=== PATIENT | female | born 1980 | race Caucasian/White ===

== ENCOUNTER 2016-10-11 15:48 | Emergency (ER) | payer BC, OTHER ==
[~2016-10-11] VITALS: Ht 160 cm; Wt 94.0 kg
[2016-10-11 15:53] VITALS: TEMP 37.3; Ht 160 cm; Wt 94.0 kg
--- NOTE | 2016-10-11 16:16 | EMERGENCY ROOM VISIT NOTE ---
History First contact with patient: 16:04 Chief Complaint: HAND PAIN/INJURY Stated Complaint: SWOLLEN, EXTREME PAIN IN LEFT HAND- History of Present Illness The patient is a 35 year old female who presents to the Emergency Room with complaints of fall at work. The patient states that she accidentally stepped into a drain in the floor at work. She states she struck her left hand on the rim of the drain. She states she also twisted her right knee and right ankle. She is able to walk without significant difficulty. She complains of pain in the left hand over the first metacarpal. She reports pain with movement of the left thumb. She rates her discomfort a 9/10. She denies striking her head or having loss of consciousness. She denies any nausea or vomiting. She denies any numbness or tingling. She denies any other injury. Review of Systems A 10 system review of systems was completed with positives and pertinent negatives listed in the HPI. Past Medical/Surgical History Medical Problems: (1) IBS (irritable bowel syndrome) Family History Cancer Diabetes mellitus FHx: gallbladder disease Hypertension Social History Smoking Status: Current Every Day Smoker Alcohol Use: occasionally Marital Status: in relationship Housing Status: lives with significant other Occupation Status: employed Current/Historical Medications Scheduled PRN Baclofen (Baclofen), 10 MG PO DAILY PRN for Muscle Spasms Allergies Coded Allergies: Penicillins (Verified Allergy, Unknown, ., 10/11/16) Tramadol (Unverified Allergy, Unknown, DIZZINESS/LIGHT HEADED, 10/11/16) Physical Exam Vital Signs Date Time Temp Pulse Resp B/P Pulse Ox O2 Delivery O2 Flow Rate FiO2 10/11/16 17:41 83 18 121/93 97 Room Air 10/11/16 15:53 37.3 84 16 159/96 100 Room Air Physical Exam VITALS: Vitals are noted on the nurse's note and reviewed by myself. Vital signs stable. GENERAL: This is a 35-year-old female, in no acute distress, nondiaphoretic, well-developed well-nourished. SKIN: There is ecchymosis and edema over the thenar eminence of the left hand. There is superficial abrasion noted to the left anterior lower extremity. There is no tenting of the skin. Capillary reflex less than 2 seconds. HEAD: Normocephalic atraumatic. EARS: External ears are normal in appearance. EYES: Pupils equal round and reactive to light and accommodation. Conjunctivae without injection, sclerae without icterus. Extraocular movements intact. NOSE: Patent, turbinates without inflammation or discharge. MOUTH: Mucous membranes moist. Tonsils are not enlarged. Pharynx without erythema or exudate. Uvula midline. Airway patent. Tongue does not deviate. NECK: Supple without nuchal rigidity. No JVD. HEART: Regular rate and rhythm without murmurs gallops or rubs. LUNGS: Clear to auscultation bilaterally without wheezes, rales or rhonchi. No retractions or accessory muscle use. MUSCULOSKELETAL: No muscle atrophy, erythema,noted. There is ecchymosis, edema and tenderness over the left thenar eminence. There is no significant or obvious ligamentous instability of the left thumb. There is no significant snuffbox tenderness. Reports since there is mild tenderness to palpation to the right lateral malleolus. There is no erythema, ecchymosis, edema or deformity. There is mild tenderness to palpation of the right knee without deformity, ecchymosis, edema or erythema. Remaining extremities are unremarkable. NEURNormal sensation to light and sharp touch. Deep tendon reflexes 2+ throughout. No focal neurological deficits. Medical Decision & Procedures ER Provider Diagnostic Interpretation: [~ rep ct add3]] RIGHT ANKLE 3 VIEWS CLINICAL HISTORY: Fall with right ankle pain. FINDINGS: 3 views of the right ankle are compared to study dated 12/29/2005. The skeletal structures are well mineralized. No fracture is seen. The ankle mortise is intact. There is no joint effusion. Minimal degenerative spurring is seen along the dorsal aspect of the tarsal bones. There is a large dorsal calcaneal enthesophyte. Mild soft tissue swelling is present in the distal calf. IMPRESSION: Mild soft tissue swelling with no radiographic evidence of right ankle fracture. LEFT HAND 3 VIEWS CLINICAL HISTORY: Fall with left hand pain. FINDINGS: 3 views of left hand are obtained. No prior studies are available for comparison at the time of dictation. The skeletal structures are well mineralized. No fracture is seen. The joint spaces of the hand are well-maintained. The overlying soft tissues are within normal limits. IMPRESSION: Unremarkable radiographic assessment of the left hand. RIGHT KNEE 3 VIEWS CLINICAL HISTORY: Fall with right knee pain. FINDINGS: AP, crosstable lateral, and sunrise views of the right knee are obtained. No prior studies are available for comparison at the time of dictation. The skeletal structures are well mineralized. No fracture is seen. The joint spaces of the knee are well-maintained. The overlying soft tissues are within normal limits. IMPRESSION: No acute bony abnormality is seen in the right knee. LEFT WRIST 5 VIEWS CLINICAL HISTORY: Fall with left wrist pain. FINDINGS: 5 views of left wrist are obtained. No prior studies are available for comparison at the time of dictation. The skeletal structures are well mineralized. No fracture is seen. The joint spaces of the wrist are well-maintained. The overlying soft tissues are within normal limits. IMPRESSION: Unremarkable radiographic assessment of the left wrist. Medications Administered Medications (Trade) Dose Ordered Sig/Maynor Route Start Time Stop Time Status Last Admin Dose Admin Acetaminophen/ Hydrocodone Bitart (Lisle 5/325mg Home Pack) 1 homepack UD ONCE PO 10/11/16 17:45 4 17:45 DC 10/11/16 17:40 1 HOMEPACK ED Course The patient was seen and examined. Previous visits were reviewed. The patient tripped and fell at work. She has pain, tenderness and ecchymosis to the left hand. This likely represents a hand contusion. There is no evidence for fracture on x-ray. Ligamentous injury is also considered. 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 Neurovascular status was intact. There is no evidence for fracture in the right knee or right ankle. The patient was encouraged to try conservative management. She was given a note for work. She did request additional pain medication. I advised her that the mainstay of treatment is ice , rest, elevation and anti-inflammatories. I did give her a take-home pack of Lisle but advised her that conservative management is more appropriate after the initial 24-48 hours. She should return to the ER with any worsening symptoms. Otherwise, she should follow-up with orthopedics if symptoms are not improving in 5-7 days. Medical Decision The differential diagnosis includes contusion, sprain, strain, ligamentous injury, fracture, among others Impression Primary Impression: Hand contusion Additional Impressions: Fall Work related injury Leg sprain Departure Information Dispostion Home / Self-Care Condition GOOD Referrals Kailash Garcia, D.O. (PCP) Rocael Braden D.O. Forms HOME CARE DOCUMENTATION FORM, IMPORTANT VISIT INFORMATION, Work Instructions Additional Instructions: Must wear splint with limited use of the left hand for the next 7 days Patient Instructions [facility] Additional Instructions Motrin 600 mg every 6-8 hours or moderate pain Wear the splint over the next 5-7 days Follow-up with an employer proved Worker's Compensation doctor if symptoms are not improving Return with any worsening symptoms Lisle 1 tablet every 6 hours if needed for worse pain. Do not drink or drive while taking Lisle and do not take with Tylenol. Problem Qualifiers Primary Impression: Hand contusion Encounter type: initial encounter Laterality: left Qualified Codes: S60.222A - Contusion of left hand, initial encounter Additional Impressions: Fall Encounter type: initial encounter Qualified Codes: W19.XXXA - Unspecified fall, initial encounter
[2016-10-11] MEDS ORDERED: LRS10 PO (16:45)
--- NOTE | 2016-10-11 16:49 | DIAGNOSTIC IMAGING REPORT ---
RIGHT KNEE 3 VIEWS CLINICAL HISTORY: Fall with right knee pain. FINDINGS: AP, crosstable lateral, and sunrise views of the right knee are obtained. No prior studies are available for comparison at the time of dictation. The skeletal structures are well mineralized. No fracture is seen. The joint spaces of the knee are well-maintained. The overlying soft tissues are within normal limits. IMPRESSION: No acute bony abnormality is seen in the right knee. Electronically signed by: Sanjay Epps M.D. 10/11/2016 4:46 PM Dictated Date/Time: 10/11/2016 4:45 PM
--- NOTE | 2016-10-11 16:50 | DIAGNOSTIC IMAGING REPORT ---
RIGHT ANKLE 3 VIEWS CLINICAL HISTORY: Fall with right ankle pain. FINDINGS: 3 views of the right ankle are compared to study dated 12/29/2005. The skeletal structures are well mineralized. No fracture is seen. The ankle mortise is intact. There is no joint effusion. Minimal degenerative spurring is seen along the dorsal aspect of the tarsal bones. There is a large dorsal calcaneal enthesophyte. Mild soft tissue swelling is present in the distal calf. IMPRESSION: Mild soft tissue swelling with no radiographic evidence of right ankle fracture. Electronically signed by: Sanjay Epps M.D. 10/11/2016 4:48 PM Dictated Date/Time: 10/11/2016 4:47 PM
--- NOTE | 2016-10-11 17:06 | DIAGNOSTIC IMAGING REPORT ---
LEFT WRIST 5 VIEWS CLINICAL HISTORY: Fall with left wrist pain. FINDINGS: 5 views of left wrist are obtained. No prior studies are available for comparison at the time of dictation. The skeletal structures are well mineralized. No fracture is seen. The joint spaces of the wrist are well-maintained. The overlying soft tissues are within normal limits. IMPRESSION: Unremarkable radiographic assessment of the left wrist. Electronically signed by: Sanjay Epps M.D. 10/11/2016 5:04 PM Dictated Date/Time: 10/11/2016 5:02 PM
--- NOTE | 2016-10-11 17:07 | DIAGNOSTIC IMAGING REPORT ---
LEFT HAND 3 VIEWS CLINICAL HISTORY: Fall with left hand pain. FINDINGS: 3 views of left hand are obtained. No prior studies are available for comparison at the time of dictation. The skeletal structures are well mineralized. No fracture is seen. The joint spaces of the hand are well-maintained. The overlying soft tissues are within normal limits. IMPRESSION: Unremarkable radiographic assessment of the left hand. Electronically signed by: Sanjay Epps M.D. 10/11/2016 5:05 PM Dictated Date/Time: 10/11/2016 5:04 PM
[2016-10-11 17:41] VITALS: BP 121/93; PULSE 83; O2SAT 97
[2016-10-11] MEDS ORDERED: NORCO 5/325MG HOME PACK PO ONE (17:45)
== END 2016-10-11 17:43 | disposition home or self-care (01) ==
LOC: C.EDB 15:49 → C.EDD 17:43
DX: S60.222A Contusion of left hand, initial encounter (principal); S93.401A Sprain of unspecified ligament of right ankle, initial encounter; W19.XXXA Unspecified fall, initial encounter; Y92.89 Other specified places as the place of occurrence of the external cause; Y99.0 Civilian activity done for income or pay; K58.9 Irritable bowel syndrome, unspecified; Z80.9 Family history of malignant neoplasm, unspecified; Z83.3 Family history of diabetes mellitus; Z83.79 Family history of other diseases of the digestive system; Z82.49 Family history of ischemic heart disease and other diseases of the circulatory system; F17.210 Nicotine dependence, cigarettes, uncomplicated

== ENCOUNTER → 2017-03-03 | Outpatient (CLI) | payer BC ==
[~2017-03-03] MED LIST: LRS10 PO
--- NOTE | 2017-03-03 15:05 | DIAGNOSTIC IMAGING REPORT ---
LEFT WRIST MIN 3 VIEWS ROUTINE CLINICAL HISTORY: Fracture. Distal left ulnar pain following fall. COMPARISON: Left hand and wrist radiographs October 11, 2016. FINDINGS: Carpal bones are intact. There is no acute fracture within the left wrist. IMPRESSION: No acute fracture or dislocation of the left wrist. Electronically signed by: Rodriguez Casanova M.D. 03/03/2017 3:04 PM Dictated Date/Time: 03/03/2017 3:03 PM
== END | disposition home or self-care (01) ==
LOC: C.RDSM 14:43
PROVIDERS: ATTEND Physician Assistant
DX: T14.8 Other injury of unspecified body region (principal); W19.XXXA Unspecified fall, initial encounter

== ENCOUNTER → 2017-03-24 | Outpatient (CLI) | payer BC ==
--- NOTE | 2017-03-24 15:37 | DIAGNOSTIC IMAGING REPORT ---
L WRIST MIN 3 VIEWS ROUTINE CLINICAL HISTORY: 36 years-old Female presenting with F/U LEFT WRIST FX. TECHNIQUE: Frontal, oblique, and lateral views of the left wrist were obtained. COMPARISON: 03/03/2017. FINDINGS: Radiocarpal, intercarpal, and carpometacarpal articulations intact. No acute fracture or malalignment. No radiographic soft tissue abnormality. IMPRESSION: No acute osseous injury of the left wrist. Electronically signed by: Junior No M.D. 03/24/2017 3:36 PM Dictated Date/Time: 03/24/2017 3:35 PM
== END | disposition home or self-care (01) ==
LOC: C.RDSM 15:45
PROVIDERS: ATTEND Physician Assistant
DX: Z09 Encounter for follow-up examination after completed treatment for conditions other than malignant neoplasm (principal); S62.102D Fracture of unspecified carpal bone, left wrist, subsequent encounter for fracture with routine healing; X58.XXXD Exposure to other specified factors, subsequent encounter; M25.532 Pain in left wrist

== ENCOUNTER 2022-02-06 11:01 | Inpatient (IN) ==
[2022-02-06] MEDS ORDERED: oxyCODONE HCL IR 5 MG TAB (IMMEDIATE RELEASE) PO STA (11:27)
--- NOTE | 2022-02-06 11:32 | Emergency Department Note ---
History of Present Illness General Chief complaint: Wrist Pain Stated complaint: PAIN IN LEFT WRIST Time Seen by Provider: 02/06/22 11:19 History of Present Illness This is a 41-year-old female that presents to the emergency department via private vehicle with complaints of "pain in left wrist". The patient states that 1.5 days ago she began with discomfort to the left distal forearm/left ventral wrist region. She denies any known trauma or injury to the area. She notes significant discomfort when she attempts to move digits 3, 4, and 5 either with flexion or extension. She does note that this has progressed since that time. She states that the pain radiates from the left wrist all the way to the left shoulder. She denies any fevers or chills but does note some redness to the ventral left wrist area. Current pain is rated as severe. Home Medications Medication Instructions Recorded Confirmed Type acetaminophen 500 mg tablet 500 mg PO TID PRN Pain 06/04/19 02/06/22 History (Tylenol Extra Strength) Allergies Allergy/AdvReac Type Severity Reaction Status Date / Time Penicillins Allergy Unknown . Verified 06/04/19 12:10 tramadol Allergy Unknown DIZZINESS/LIGHT Unverified 06/04/19 12:10 HEADED Past Med/Surg History Medical History Arthritis Arthritis of back Fibromyalgia IBS (irritable bowel syndrome) Surgical History H/O knee surgery Family History Other Breast cancer Diabetes Hypertension Social History Smoking Status: Current every day smoker packs per day: 1; Hx Alcohol Use: No Hx Substance Use: Yes Prescribed Medications: Marijuana Preferred Language: Monegasque [employer] Manager Required: No Beliefs That Will Affect Care: None marital status: Current Living Situation: Significant Other current occupational status: employed current occupation: [employer] Other Information That Helps Us Care for You: No Feels Safe at Home: Yes Safety Concerns: Feels Safe At This Time Assistive Devices: Glasses Review of Systems A total of 10 systems reviewed and were otherwise negative Physical Exam Vital Signs Vital Signs - 24 hr 02/06/22 11:10 08/14/22 11:41 02/06/22 14:44 Temperature 36.8 C Temperature Source Temporal Artery Scan Pulse Rate 70 Pulse Rate [Left Radial] 95 H Pulse Rhythm [Left Radial] Regular Respiratory Rate 16 20 Respiratory Effort / Characteristics Non-Labored Spontaneous Respiratory Depth Normal Normal Respiratory Pattern Regular Blood Pressure 136/85 Blood Pressure Mean 102 Blood Pressure Position Sitting Pulse Oximetry 98 99 97 Oxygen Delivery Method Room Air Room Air Room Air Sepsis Recent Fever Within 48 Hours No Sepsis New/Unexplained Change in Mental Status No Sepsis Action Taken by Nursing No Action Required VITAL SIGNS - Vital signs and nursing notes were reviewed. Stable and afebrile. GENERAL -41-year-old female appearing her stated age who is in no acute distress. Communicates well with provider and answers questions appropriately. SKIN -there is erythema and edema noted overlying the ventral aspect of the left wrist. Patient is holding digits 3, 4 and 5 of the left hand in a flexed position. Decreased left wrist range of motion noted. NECK - Neck with FROM. No nuchal rigidity. LUNGS - Chest wall symmetric without accessory muscle use, intercostals retractions, or central cyanosis. Normal vesicular breath sounds CTA B/L. No wh eezes, rales, or rhonchi appreciated. CARDIAC - RRR with S1/S2. No murmur, rubs, or gallops appreciated. EXTREMITIES - No clubbing or peripheral cyanosis. Skin as above. There is point tenderness overlying the ventral aspect of the left wrist extending into the palmar aspect of the left proximal hand. No crepitus. There is palpable edema noted throughout the left ventral wrist region compared to the right. There is increased warmth to the left wrist compared to the right. +5/5 strength noted in UE/LE bilaterally. NEUROLOGIC - Cranial nerves II through XII grossly intact. PSYCH - A&O, and cooperates fully with examiner. Pt is very pleasant and interacts well with examiner. Course Administered Medications Discontinued Medications Fentanyl Citrate (Fentanyl Citrate 100 Mcg/2 Ml Vial) 50 mcg IV NOW STA Stop: 02/06/22 14:44 Last Admin: 02/06/22 15:02 Dose: 50 mcg Documented By: XIAO Vancomycin HCl 1,250 mg/ (Sodium Chloride) 525 mls @ 200 mls/hr IV NOW ONE Stop: 02/06/22 17:18 Last Admin: 02/06/22 15:56 Dose: 200 mls/hr Documented By: BENI Ioversol (Optiray 300 100ml) 89 ml IV ONCE ONE Stop: 02/06/22 13:53 Last Admin: 02/06/22 14:01 Dose: 89 ml Documented By: MIYA Ketorolac Tromethamine (Ketorolac Tromethamine 15 Mg/Ml Vial) 10 mg IV NOW STA Stop: 02/06/22 12:28 Last Admin: 02/06/22 12:31 Dose: 10 mg Documented By: XIAO Ondansetron HCl (Ondansetron Inj 2 Mg/Ml 2 Ml Vial) 4 mg IV NOW STA Stop: 02/06/22 14:44 Last Admin: 02/06/22 15:03 Dose: 4 mg Documented By: XIAO Oxycodone HCl (Oxycodone Hcl Ir 5 Mg Tab (Immediate Release)) 5 mg PO NOW STA Stop: 02/06/22 11:28 Last Admin: 02/06/22 11:35 Dose: 5 mg Documented By: XIAO Medical Decision Making Laboratory Data Result diagrams: 02/06/22 11:40 02/06/22 11:40 Lab Results 02/06/22 02/06/22 02/06/22 Range/Units 11:40 11:40 11:40 WBC 10.51 (4.8-10.8) K/ul RBC 4.32 (3.93-5.22) M/uL Hgb 13.2 (12.0-16.0) g/dl Hct 38.8 (34.1-44.9) % MCV 89.8 (80.0-100.0) fL MCH 30.6 (25.0-34.0) pg MCHC 34.0 (32.0-36.0) g/dL RDW Std Deviation 44.4 (36.4-46.3) fL RDW Coeff of Bruce 13.4 (11.5-14.5) % Plt Count 212 (130-400) K/uL MPV 10.5 (9.4-12.3) fL Immature Gran % (Auto) 0.3 % Neut % (Auto) 71.3 % Lymph % (Auto) 14.3 % Estill % (Auto) 10.0 % Eos % (Auto) 3.8 % Baso % (Auto) 0.3 % Neut # (Auto) 7.50 H (1.4-6.5) K/uL Lymph # (Auto) 1.50 (1.2-3.4) K/uL Estill # (Auto) 1.05 H (0.24-0.82) K/uL Eos # (Auto) 0.40 (0-0.50) K/uL Baso # (Auto) 0.03 (0-0.2) K/uL Immature Gran # (Auto) 0.03 H (0.00-0.02) K/uL ESR 13 (0-20) mm/hr Sodium 136 (136-145) mmol/L Potassium 4.1 (3.5-5.1) mmol/L Chloride 106 (98-107) mmol/L Carbon Dioxide 24 (21-32) mmol/L Anion Gap 6 (3-11) BUN 8 (6-23) mg/dl Creatinine 0.50 L (0.6-1.2) mg/dl Est Cr Clr Drug Dosing 134.2 ml/min Est GFR ( Amer) 139.3 ml/min Est GFR (Non-Af Amer) 120.2 ml/min BUN/Creatinine Ratio 16.0 (10-20) Glucose 99 (70-99(Fasting)) mg/dl Calcium 8.9 (8.5-10.1) mg/dl Total Bilirubin 0.6 (0.2-1.0) mg/dl AST 23 (13-39) U/L ALT 22 (7-52) U/L Alkaline Phosphatase 46 (34-104) U/L C-Reactive Protein 1.10 H (0-0.5) mg/dl Total Protein 7.0 (6.0-8.3) gm/dl Albumin 4.1 (3.4-5.0) gm/dl Globulin 2.9 (2.5-4.0) gm/dl Albumin/Globulin Ratio 1.4 (0.9-2) HCG, Qual (Negative) SARS-CoV-2, RNA, NAAT (NEGATIVE) 02/06/22 02/06/22 Range/Units 11:40 14:52 WBC (4.8-10.8) K/ul RBC (3.93-5.22) M/uL Hgb (12.0-16.0) g/dl Hct (34.1-44.9) % MCV (80.0-100.0) fL MCH (25.0-34.0) pg MCHC (32.0-36.0) g/dL RDW Std Deviation (36.4-46.3) fL RDW Coeff of Bruce (11.5-14.5) % Plt Count (130-400) K/uL MPV (9.4-12.3) fL Immature Gran % (Auto) % Neut % (Auto) % Lymph % (Auto) % [place] % (Auto) % Eos % (Auto) % Baso % (Auto) % Neut # (Auto) (1.4-6.5) K/uL Lymph # (Auto) (1.2-3.4) K/uL Estill # (Auto) (0.24-0.82) K/uL Eos # (Auto) (0-0.50) K/uL Baso # (Auto) (0-0.2) K/uL Immature Gran # (Auto) (0.00-0.02) K/uL ESR (0-20) mm/hr Sodium (136-145) mmol/L Potassium (3.5-5.1) mmol/L Chloride (98-107) mmol/L Carbon Dioxide (21-32) mmol/L Anion Gap (3-11) BUN (6-23) mg/dl Creatinine (0.6-1.2) mg/dl Est Cr Clr Drug Dosing ml/min Est GFR ( Amer) ml/min Est GFR (Non-Af Amer) ml/min BUN/Creatinine Ratio (10-20) Glucose (70-99(Fasting)) mg/dl Calcium (8.5-10.1) mg/dl Total Bilirubin (0.2-1.0) mg/dl AST (13-39) U/L ALT (7-52) U/L Alkaline Phosphatase (34-104) U/L C-Reactive Protein (0-0.5) mg/dl Total Protein (6.0-8.3) gm/dl Albumin (3.4-5.0) gm/dl Globulin (2.5-4.0) gm/dl Albumin/Globulin Ratio (0.9-2) HCG, Qual Negative (Negative) SARS-CoV-2, RNA, NAAT POSITIVE A* (NEGATIVE) Imaging Data Radiologist's Impression: Forearm X-Ray 02/06/22 11:27 XR forearm LT 2V, XR hand LT min 3V routine, XR wrist LT min 3V routine CLINICAL HISTORY: L hand, wrist, forearm pain. COMPARISON STUDY: No previous studies for comparison. TECHNIQUE: AP and lateral left forearm, 4 left wrist and 3 left hand views FINDINGS: Bones: There is no evidence for an acute fracture or dislocation. There is no lytic or blastic lesion. Joints: The joint spaces are maintained. The patient held her fingers in flexion. There is no evidence for an erosive arthropathy. The bones are in anatomic alignment. Soft tissues: There is no focal soft tissue abnormality. There is no radiopaque foreign body. IMPRESSION: 1. No acute osseous pathology. ACT 112: Negative or not required by law. Electronically signed by: Reyes Blunt M.D. 02/06/2022 12:01 PM Hand X-Ray 02/06/22 11:27 XR forearm LT 2V, XR hand LT min 3V routine, XR wrist LT min 3V routine CLINICAL HISTORY: L hand, wrist, forearm pain. COMPARISON STUDY: No previous studies for comparison. TECHNIQUE: AP and lateral left forearm, 4 left wrist and 3 left hand views FINDINGS: Bones: There is no evidence for an acute fracture or dislocation. There is no lytic or blastic lesion. Joints: The joint spaces are maintained. The patient held her fingers in flexi on. There is no evidence for an erosive arthropathy. The bones are in anatomic alignment. Soft tissues: There is no focal soft tissue abnormality. There is no radiopaque foreign body. IMPRESSION: 1. No acute osseous pathology. ACT 112: Negative or not required by law. Electronically signed by: Reyes Blunt M.D. 02/06/2022 12:01 PM Wrist X-Ray 02/06/22 11:27 XR forearm LT 2V, XR hand LT min 3V routine, XR wrist LT min 3V routine CLINICAL HISTORY: L hand, wrist, forearm pain. COMPARISON STUDY: No previous studies for comparison. TECHNIQUE: AP and lateral left forearm, 4 left wrist and 3 left hand views FINDINGS: Bones: There is no evidence for an acute fracture or dislocation. There is no lytic or blastic lesion. Joints: The joint spaces are maintained. The patient held her fingers in flexion. There is no evidence for an erosive arthropathy. The bones are in anatomic alignment. Soft tissues: There is no focal soft tissue abnormality. There is no radiopaque foreign body. IMPRESSION: 1. No acute osseous pathology. ACT 112: Negative or not required by law. Electronically signed by: Reyes Blunt M.D. 02/06/2022 12:01 PM Extremity Venous Study 02/06/22 11:28 US venous doppler UE LT CLINICAL HISTORY: L hand, wrist, forearm pain Procedure: Left upper extremity real-time compression venous ultrasound with Duplex and Color Doppler imaging. Utilizing real-time ultrasonic imaging multiple real time high-resolution ultrasonic images of the deep venous system were performed from the forearm through the subclavian vein including evaluation of the jugular vein. Compression real time ultrasonic imaging was performed in addition to color Doppler imaging and duplex Doppler ultrasound with velocity spectral profile analysis. There is normal compressibility of the deep venous system from the forearm through the subclavian vein. Normal vascular flow is currently identified. No e vidence of acute thrombosis is identified. Incidental note is made of a 2.4 cm left thyroid nodule. Follow-up thyroid ultrasound on nonemergent basis is recommended for further evaluation. Impression: 1. No evidence of deep venous thrombus. 2. Left thyroid nodule. ACT 112: Positive. There are findings on this exam that require communication between the performing entity and the patient following Patient Test Result Information Act [place] Act 112) guidelines. Electronically signed by: Reyes Blunt M.D. 02/06/2022 1:[address] 02/06/22 13:21 CT forearm LT w con CLINICAL HISTORY: L distal ventral forearm erythema, edema, pain COMPARISON STUDY: No previous studies for comparison. CT DOSE: 384.89 mGy.cm TECHNIQUE: Standard CT of the left forearm is performed with 89 mL of Optiray 320 IV contrast. Multiplanar reconstruction is performed. A dose lowering technique was utilized adhering to the principles of ALARA. FINDINGS: Bones: There is no evidence for an acute fracture or dislocation. There are no lytic or blastic lesions. Joints: The joint spaces are maintained. The bones are in anatomic alignment. Soft tissues: There is mild subcutaneous edema seen along the ventral aspect of the wrist. No abnormal enhancement is seen. There are no focal fluid collections. Mild skin thickening is present in the findings are characteristic of mild cellulitis. IMPRESSION: 1. No acute osseous pathology. 2. Evidence for mild cellulitis along the volar aspect of the wrist no focal fluid collection or abscess. ACT 112: Negative or not required by law. Electronically signed by: Reyes Blunt M.D. 02/06/2022 2:15 PM MDM Narrative Patient was seen and evaluated as above in room D09. Review was performed of nursing notes and vital signs. I did review pertinent previous visits and patient history. After obtaining a thorough history and physical examination the above work up was performed. Patient presents to us today for evaluation of left wrist discomfort. She notes erythema and edema to the left wrist as well which does clinically correlate on examination. She also notes increased warmth to the left wrist. Vital signs stable. Patient's pain does seem quite severe at this time. No evidence of compartment syndrome. She is neurovascularly intact on examination. Patient denies chance of . Options of care were discussed with the patient. IV access was established. Labs were drawn. She was ordered oxycodone for pain. X-rays of the left hand, wrist, forearm were obtained. These were all negative for any emergent process. Labs reveal no leukocytosis or concerning anemia. There is neutrophil elevation at 7.5. No evidence of kidney or liver failure. CRP mildly elevated at 1.10. Patient does not have any findings to suggest systemic illness. CT scan was obtained of the left wrist with IV contrast over concern for potential infection as the patient's pain level seem to be higher than expected for examination findings. CT results as above. There is suggestion of mild c ellulitis noted. I would agree with this clinically as there is erythema and edema to this area. Again the patient is well-perfused distal to this without evidence of compartment syndrome. No evidence of neurovascular compromise. Left radial pulse intact. Options then discussed with the patient in regard to management. Decision was made to proceed with inpatient management for intravenous antibiotics and further evaluation and management. IV vancomycin was ordered. Additional analgesics were also added and antiemetic. Case discussed with hospitalist. Please refer to further documentation regarding her stay. Additional antibiotic regimen deferred to hospitalist service. Case was discussed with the attending physician. GCS: 15 In the evaluation and treatment of this patient the following differential diagnoses were entertained: Fracture, dislocation, subluxation, contusion, ce llulitis, compartment syndrome, carpal tunnel, among others. Impression & Plan Infection of left wrist, Acute pain of left wrist Discharge Plan Visit Data Chief Complaint: Wrist Pain Stated Complaint: PAIN IN LEFT WRIST ED Provider: Marcial Mercer ED Midlevel Provider: Liam Lugo Discharge Problem: Infection of left wrist, Acute pain of left wrist Patient Disposition: Admitted As Inpatient Condition: Good
[2022-02-06 11:57] LABS: Basophils # (auto) 0.03 K/uL (0-0.2); Basophils % (auto) 0.3 %; Eosinophils % (auto) 3.8 %; Hematocrit (blood only) 38.8 % (34.1-44.9); Hemoglobin 13.2 g/dl (12.0-16.0); Immature Granulocytes # (auto) 0.03 K/uL (0.00-0.02); Immature Granulocytes % (auto) 0.3 %; Lymphocytes % (auto) 14.3 %; Mean Corpuscular Hemoglobin 30.6 pg (25.0-34.0); Mean Corpuscular Volume 89.8 fL (80.0-100.0); Mean Platelet Volume 10.5 fL (9.4-12.3); Monocytes # (auto) 1.05 K/uL (0.24-0.82); Neutrophils % (auto) 71.3 %; Platelet Count 212 K/uL (130-400); RDW Coefficient of Variation 13.4 % (11.5-14.5); RDW Standard Deviation 44.4 fL (36.4-46.3); Red Blood Count 4.32 M/uL (3.93-5.22); White Blood Count 10.51 K/ul (4.8-10.8)
--- NOTE | 2022-02-06 12:03 | XRay Report ---
XR forearm LT 2V, XR hand LT min 3V routine, XR wrist LT min 3V routine CLINICAL HISTORY: L hand, wrist, forearm pain. COMPARISON STUDY: No previous studies for comparison. TECHNIQUE: AP and lateral left forearm, 4 left wrist and 3 left hand views FINDINGS: Bones: There is no evidence for an acute fracture or dislocation. There is no lytic or blastic lesion . Joints: The joint spaces are maintained. The patient held her fingers in flexion. There is no evidenc e for an erosive arthropathy. The bones are in anatomic alignment. Soft tissues: There is no focal soft tissue abnormality. There is no radiopaque foreign body. IMPRESSION: 1. No acute osseous pathology. ACT 112: Negative or not required by law. Electronically signed by: Reyes Blunt M.D. 02/06/2022 12:01 PM
[2022-02-06 12:17] LABS: Albumin Globulin Ratio 1.4 (0.9-2); Albumin Level 4.1 gm/dl (3.4-5.0); Bilirubin,Total 0.6 mg/dl (0.2-1.0); C Reactive Protein 1.1 mg/dl (0-0.5); Calcium 8.9 mg/dl (8.5-10.1); Creatinine Clr Calc Pharmacy 134.2 ml/min; Est GFR (African American) 139.3 ml/min; Est GFR (Non-African American) 120.2 ml/min; Globulin 2.9 gm/dl (2.5-4.0); Potassium 4.1 mmol/L (3.5-5.1)
[2022-02-06] MEDS ORDERED: KETOROLAC TROMETHAMINE 15 MG/ML VIAL IV STA (12:27)
--- NOTE | 2022-02-06 13:15 | Ultrasound Report ---
US venous doppler UE LT CLINICAL HISTORY: L hand, wrist, forearm pain Procedure: Left upper extremity real-time compression venous ultrasound with Duplex and Color Doppler imaging. Utilizing real-time ultrasonic imaging multiple real time high-resolution ultrasonic images of the de ep venous system were performed from the forearm through the subclavian vein including evaluation of the jugular vein. Compression real time ultrasonic imaging was performed in addition to color Dopple r imaging and duplex Doppler ultrasound with velocity spectral profile analysis. There is normal compressibility of the deep venous system from the forearm through the subclavian vei n. Normal vascular flow is currently identified. No evidence of acute thrombosis is identified. Incidental note is made of a 2.4 cm left thyroid nodule. Follow-up thyroid ultrasound on nonemergent basis is recommended for further evaluation. Impression: 1. No evidence of deep venous thrombus. 2. Left thyroid nodule. ACT 112: Positive. There are findings on this exam that require communication between the performing entity and the patient following Patient Test Result Information Act [place] Act 112) guidelines. Electronically signed by: Reyes Blunt M.D. 02/06/2022 1:13 PM
[2022-02-06] MEDS ORDERED: OPTIRAY 300 100mL IV ONE (13:52)
--- NOTE | 2022-02-06 14:17 | CT Scan Report ---
CT forearm LT w con CLINICAL HISTORY: L distal ventral forearm erythema, edema, pain COMPARISON STUDY: No previous studies for comparison. CT DOSE: 384.89 mGy.cm TECHNIQUE: Standard CT of the left forearm is performed with 89 mL of Optiray 320 IV contrast. Multip lanar reconstruction is performed. A dose lowering technique was utilized adhering to the principles of ALARA. FINDINGS: Bones: There is no evidence for an acute fracture or dislocation. There are no lytic or blastic lesio ns. Joints: The joint spaces are maintained. The bones are in anatomic alignment. Soft tissues: There is mild subcutaneous edema seen along the ventral aspect of the wrist. No abnorma l enhancement is seen. There are no focal fluid collections. Mild skin thickening is present in the f indings are characteristic of mild cellulitis. IMPRESSION: 1. No acute osseous pathology. 2. Evidence for mild cellulitis along the volar aspect of the wrist no focal fluid collection or absc ess. ACT 112: Negative or not required by law. Electronically signed by: Reyes Blunt M.D. 02/06/2022 2:15 PM
[2022-02-06] MEDS ORDERED: VANCOMYCIN HCL 1,250 MG in SODIUM CHLORIDE 0.9% 500 ML IV ONE (14:41)
[2022-02-06] MEDS ORDERED: VANCOMYCIN CONSULT ACTIVE PRN (14:41)
[2022-02-06] MEDS ORDERED: ONDANSETRON INJ 2 MG/ML 2 ML VIAL IV STA (14:43)
[2022-02-06] MEDS ORDERED: fentaNYL citrate 100 MCG/2 ML VIAL IV STA (14:43)
--- NOTE | 2022-02-06 15:27 | History & Physical Report ---
Date of Service February 06, 2022 Assessment & Plan (1) Tenosynovitis of left wrist: (2) Cellulitis: (3) Acute pain of left wrist: (4) Cat scratch of hand: (5) Fibromyalgia: (6) Tobacco use disorder: Plan This is a 41-year-old female with PMH of fibromyalgia, thoracic degenerative disc disease, IBS, tobacco use, medical marijuana use, depression and other medical problems listed below who presents with left wrist pain found to have cellulitis and severe tenosynovitis. 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 Addended read with additional findings of significant edema and fluid in the flexor tendons suggestive of severe nonspecific tenosynovitis. No drainable fluid collection Discussed with Dr. Acosta who recommended scheduled Toradol, volar splint from fingers to forearm with strict elevation, CBC/ESR/CRP in AM, NPO @ [facility] Received vanco in ED (h/o severe PCN allergy per mother). Continue abx coverage with doxy and Clinda. Started on probiotics as well Pain mgmt with scheduled Toradol and tylenol. PRN Oxycodone for severe pain Tobacco use disorder Smokes 1 ppd. Cessation recommended. Nicotine patch ordered DVT Ppx: SCDs Code status: FULL PCP: Odessa Garcia Dispo: Obs med/surg Patient seen in collaboration with Dr. Petersen. Please see addendum. History of Present Illness Chief Complaint: Right upper extremity pain Primary Care Provider: Kailash Garcia, DO This is a 41-year-old female with PMH of fibromyalgia, thoracic degenerative disc disease, IBS, tobacco use, medical marijuana use, depression and other medical problems listed below who presents with left wrist pain. States that pain began 3 days ago and is a sharp shooting pain that is 8/10 even after fentanyl in the ER. Also endorses inability to flex third through fifth fingers and paresthesias in left forearm. 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 States she has history of arthritis but this feels much more painful and severe. Has kittens at home and has had scratches to left hand recently. Only 1 small scratch remaining on left thumb. Denies any fever or chills. No chest pain, shortness of breath, nausea, vomiting, abdominal pain, dysuria, di arrhea or constipation. Of note, patient tested positive for COVID on January 27. Does not feel symptomatic any longer. Smokes 1 pack a day of cigarettes. Is not on any home medications. Recently prescribed small dose of Zoloft to trial but instructed by Dr. Traore to not start for another week due to recent COVID infection. Allergies Allergy/AdvReac Type Severity Reaction Status Date / Time Penicillins Allergy Unknown . Verified 06/04/19 12:10 tramadol Allergy Unknown DIZZINESS/LIGHT Unverified 06/04/19 12:10 HEADED Home Medications Medication Instructions Recorded Confirmed Type acetaminophen 500 mg tablet 500 mg PO TID PRN Pain 06/04/19 02/06/22 History (Tylenol Extra Strength) Past Med/Surg History Medical History (Updated 02/06/22 @ 18:22 by Delores Montgomery PA-C) Arthritis Arthritis of back Fibromyalgia IBS (irritable bowel syndrome) Tobacco use disorder Surgical History H/O knee surgery Family History Other Breast cancer Diabetes Hypertension Social History Smoking Status: Current every day smoker packs per day: 1; Hx Alcohol Use: No Hx Substance Use: Yes Prescribed Medications: Marijuana Preferred Language: Sudanese Lean Engineer Required: No Beliefs That Will Affect Care: None marital status: Current Living Situation: Significant Other current occupational status: employed 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 Physical Exam 2 Physical Exam: General Appearance: WD/WN, vitals as above, NAD, sitting up in bed, in acute pain Head: normocephalic, atraumatic Eyes: normal inspection, PERRL, conjunctivae normal, anicteric sclerae ENT: external ear and nose normal, oropharynx normal Neck: normal visual inspection, trachea midline, no thyromegaly Respiratory: normal respiratory effort, lungs clear to auscultation, no wheeze, rales, rhonchi. No accessory muscle use Cardiovascular: regular rate, rhythm, no murmur, normal peripheral pulses, no BLE edema. Vessels: no JVD Chest: normal inspection of chest Abdomen/GI: normal bowel sounds, soft, nontender, no hepatosplenomegaly Extremities/Musculoskeletal: no cyanosis or clubbing, extremities motor strength 5/5. + L ventral aspect of wrist with TTP, erythema and edema. No crepitus. Difficulty flexing 3rd-5th digits on L hand 2/2 pain Neurologic: PERRL, EOMI, accommodation nl, no face palsy, no dysarthria, CN's II-XI intact bilaterally and moves all extremities Psychiatric: A+Ox3, euthymic affect Skin: no rashes, normal color, warm/dry Results & Data Results & Data ([facility]) Vital Signs (Past 12 Hours) Vital Signs Temp Pulse Pulse Resp BP Pulse Ox O2 Del Method 02/06/22 14:44 97 Room Air 02/06/22 11:41 95 H 20 99 Room Air 02/06/22 11:10 36.8 C 70 16 136/85 98 Room Air Laboratory Results Short CBC 02/06/22 Range/Units 11:40 WBC 10.51 (4.8-10.8) K/ul Hgb 13.2 (12.0-16.0) g/dl Hct 38.8 (34.1-44.9) % Plt Count 212 (130-400) K/uL BMP 02/06/22 11:40 Sodium 136 Potassium 4.1 Chloride 106 Carbon Dioxide 24 BUN 8 Creatinine 0.50 L Glucose 99 Calcium 8.9 Liver Function 02/06/22 Range/Units 11:40 Total Bilirubin 0.6 (0.2-1.0) mg/dl AST 23 (13-39) U/L ALT 22 (7-52) U/L Alkaline Phosphatase 46 (34-104) U/L Albumin 4.1 (3.4-5.0) gm/dl Diagnostic Findings Forearm X-Ray 02/06/22 11:27 XR forearm LT 2V, XR hand LT min 3V routine, XR wrist LT min 3V routine CLINICAL HISTORY: L hand, wrist, forearm pain. COMPARISON STUDY: No previous studies for comparison. TECHNIQUE: AP and lateral left forearm, 4 left wrist and 3 left hand views FINDINGS: Bones: There is no evidence for an acute fracture or dislocation. There is no lytic or blastic lesion. Joints: The joint spaces are maintained. The patient held her fingers in flexion. There is no evidence for an erosive arthropathy. The bones are in anatomic alignment. Soft tissues: There is no focal soft tissue abnormality. There is no radiopaque foreign body. IMPRESSION: 1. No acute osseous pathology. ACT 112: Negative or not required by law. Electronically signed by: Reyes Blunt M.D. 02/06/2022 12:01 PM Hand X-Ray 02/06/22 11:27 XR forearm LT 2V, XR hand LT min 3V routine, XR wrist LT min 3V routine CLINICAL HISTORY: L hand, wrist, forearm pain. COMPARISON STUDY: No previous studies for comparison. TECHNIQUE: AP and lateral left forearm, 4 left wrist and 3 left hand views FINDINGS: Bones: There is no evidence for an acute fracture or dislocation. There is no lytic or blastic lesion. Joints: The joint spaces are maintained. The patient held her fingers in flexion. There is no evidence for an erosive arthropathy. The bones are in anatomic alignment. Soft tissues: There is no focal soft tissue abnormality. There is no radiopaque foreign body. IMPRESSION: 1. No acute osseous pathology. ACT 112: Negative or not required by law. Electronically signed by: Reyes Blunt M.D. 02/06/2022 12:01 PM Wrist X-Ray 02/06/22 11:27 XR forearm LT 2V, XR hand LT min 3V routine, XR wrist LT min 3V routine CLINICAL HISTORY: L hand, wrist, forearm pain. COMPARISON STUDY: No previous studies for comparison. TECHNIQUE: AP and lateral left forearm, 4 left wrist and 3 left hand views FINDINGS: Bones: There is no evidence for an acute fracture or dislocation. There is no lytic or blastic lesion. Joints: The joint spaces are maintained. The patient held her fingers in flexion. There is no evidence for an erosive arthropathy. The bones are in anatomic alignment. Soft tissues: There is no focal soft tissue abnormality. There is no radiopaque foreign body. IMPRESSION: 1. No acute osseous pathology. ACT 112: Negative or not required by law. Electronically signed by: Reyes Blunt M.D. 02/06/2022 12:01 PM Extremity Venous Study 02/06/22 11:28 US venous doppler UE LT CLINICAL HISTORY: L hand, wrist, forearm pain Procedure: Left upper extremity real-time compression venous ultrasound with Duplex and Color Doppler imaging. Utilizing real-time ultrasonic imaging multiple real time high-resolution ultrasonic images of the deep venous system were performed from the forearm through the subclavian vein including evaluation of the jugular vein. Compression real time ultrasonic imaging was performed in addition to color Doppler imaging and duplex Doppler ultrasound with velocity spectral profile analysis. There is normal compressibility of the deep venous system from the forearm through the subclavian vein. Normal vascular flow is currently identified. No evidence of acute thrombosis is identified. Incidental note is made of a 2.4 cm left thyroid nodule. Follow-up thyroid ultrasound on nonemergent basis is recommended for further evaluation. Impression: 1. No evidence of deep venous thrombus. 2. Left thyroid nodule. ACT 112: Positive. There are findings on this exam that require communication between the performing entity and the patient following Patient Test Result Information Act [place] Act 112) guidelines. Electronically signed by: Reyes Blunt M.D. 02/06/2022 1:[address] 02/06/22 13:21 CT forearm LT w con CLINICAL HISTORY: L distal ventral forearm erythema, edema, pain COMPARISON STUDY: No previous studies for comparison. CT DOSE: 384.89 mGy.cm TECHNIQUE: Standard CT of the left forearm is performed with 89 mL of Optiray 320 IV contrast. Multiplanar reconstruction is performed. A dose lowering technique was utilized adhering to the principles of ALARA. FINDINGS: Bones: There is no evidence for an acute fracture or dislocation. There are no lytic or blastic lesions. Joints: The joint spaces are maintained. The bones are in anatomic alignment. Soft tissues: There is mild subcutaneous edema seen along the ventral aspect of the wrist. No abnormal enhancement is seen. There are no focal fluid collections. Mild skin thickening is present in the findings are characteristic of mild cellulitis. IMPRESSION: 1. No acute osseous pathology. 2. Evidence for mild cellulitis along the volar aspect of the wrist no focal fluid collection or abscess. ACT 112: Negative or not required by law. Electronically signed by: Reyes Blunt M.D. 02/06/2022 2:15 PM Code Status & VTE Plan VTE Prophylaxis Plan VTE Prophylaxis will be ordered: Yes Supervising Physician Co-Signing Physician Notes Attending Addendum: care coordinated with BATSHEVA Montgomery please refer to her notes for full details, I agree with her notes patient seen and examined, records reviewed by myself as well Please refer to her notes for diagnoses and plan of care Chaim Crane MD
[2022-02-06 16:34] LABS: Pregnancy Test, Serum Negative (Negative)
[2022-02-06] MEDS ORDERED: ONDANSETRON INJ 2 MG/ML 2 ML VIAL IV PRN (17:06)
[2022-02-06] MEDS ORDERED: POLYETHYLENE (MIRALAX) 17 GM PACK PO PRN (17:06)
[2022-02-06] MEDS ORDERED: ACETAMINOPHEN 325 MG TAB PO PRN (17:06)
[2022-02-06] MEDS ORDERED: KETOROLAC TROMETHAMINE 15 MG/ML VIAL IV PRN (17:17)
[2022-02-06] MEDS: oxyCODONE HCL IR 5 MG TAB (IMMEDIATE RELEASE) PO PRN ×2 (18:37→21:14)
[2022-02-06] MEDS: ACETAMINOPHEN 500 MG TAB PO SCH (18:37)
[2022-02-06] MEDS: KETOROLAC TROMETHAMINE 15 MG/ML VIAL IV SCH (18:43)
[2022-02-06] MEDS: ADVANCED PROBIOTIC 1250 MG CAPSULE PO SCH (19:15)
[2022-02-06] MEDS: CLINDAMYCIN/D5W 300 MG/50 ML BAG IV SCH (19:15)
[2022-02-06] MEDS: NICOTINE 21 MG/24 HR TDSY TD SCH (19:15)
[2022-02-06] MEDS: DOXYCYCLINE HYCLATE 100 MG in DEXTROSE 5% 100 ML IV SCH (19:15)
[2022-02-06] MEDS ORDERED: SODIUM CHLORIDE 0.9% 1000ML 1,000 ML IV SCH (19:30)
[2022-02-06] MEDS ORDERED: HYDROmorphone INJ 0.5 MG/0.5 ML SYR IV STA (21:25)
[2022-02-07] MEDS: ACETAMINOPHEN 500 MG TAB PO SCH ×3 (01:05→18:01)
[2022-02-07] MEDS: KETOROLAC TROMETHAMINE 15 MG/ML VIAL IV SCH ×4 (01:05→18:38)
[2022-02-07] MEDS: CLINDAMYCIN/D5W 300 MG/50 ML BAG IV SCH ×3 (01:07→18:05)
[2022-02-07] MEDS: HYDROmorphone INJ 0.5 MG/0.5 ML SYR IV PRN ×2 (04:27→21:38)
[2022-02-07] MEDS: DOXYCYCLINE HYCLATE 100 MG in DEXTROSE 5% 100 ML IV SCH ×2 (05:52→18:45)
[2022-02-07 06:51] LABS: Mean Corpuscular Hemoglobin 30.4 pg (25.0-34.0); Mean Corpuscular Hgb Conc 32.4 g/dL (32.0-36.0); Mean Corpuscular Volume 93.7 fL (80.0-100.0); Mean Platelet Volume 10.7 fL (9.4-12.3); Platelet Count 175 K/uL (130-400); RDW Coefficient of Variation 13.8 % (11.5-14.5); RDW Standard Deviation 47.7 fL (36.4-46.3); Red Blood Count 3.95 M/uL (3.93-5.22); White Blood Count 9.75 K/ul (4.8-10.8)
[2022-02-07 07:16] LABS: C Reactive Protein 5.62 mg/dl (0-0.5); Calcium 8.2 mg/dl (8.5-10.1); Creatinine Clr Calc Pharmacy 134.2 ml/min; Est GFR (African American) 139.3 ml/min; Est GFR (Non-African American) 120.2 ml/min
--- NOTE | 2022-02-07 08:42 | Orthopedic Consultation ---
Date of Service February 07, 2022 Assessment & Plan (1) Tenosynovitis of left wrist: (2) Cellulitis: Plan 41 yo F with presentation of focal flexor tenosynovitis vs cellulitis at palmar wrist. Labs show mixed picture. No sepsis. Appears improved overnight with antibiotic coverage. No clear surgical indications this morning. - Agree with previous plan for MR with contrast of wrist to determine flexor tenosynovitis involvement. - Continue empiric abx. - Given that infection not entirely ruled out, hold on corticosteroids for now. - Will re-eval this afternoon. - Cancel NPO for today History of Present Illness Reason for Consultation: severe left wrist pain Requesting Physician: . Attending Physician: Brian Dawkins MD 41 yo F hx of depression, IBS, and fibromyalgia admitted with severe wrist pain and fixed flexion of fingers. Overnight, treated with toradol and empiric antibiotic coverage for presumed cellulitis vs flexor tenosynovitis. Reports improvement in pain, redness, and swelling overnight. Still has severe pain with motion through the wrist and fingers. No prior history. Some mild cat scratches but no penetrating bites or other injuries. Symptoms present for 2 days. Denies fevers, chills, malaise overnight. Says that elevation of the sommer nd makes it feel worse. Allergies Allergy/AdvReac Type Severity Reaction Status Date / Time Penicillins Allergy Unknown . Verified 06/04/19 12:10 tramadol Allergy Unknown DIZZINESS/LIGHT Unverified 06/04/19 12:10 HEADED Home Medications Medication Instructions Recorded Confirmed Type acetaminophen 500 mg tablet 500 mg PO TID PRN Pain 06/04/19 02/06/22 History (Tylenol Extra Strength) Past Med/Surg History Medical History Arthritis Arthritis of back Fibromyalgia IBS (irritable bowel syndrome) Tobacco use disorder Surgical History H/O knee surgery Family History Other Breast cancer Diabetes Hypertension Social History Smoking Status: Current every day smoker packs per day: 1; Hx Alcohol Use: No Hx Substance Use: Yes Prescribed Medications: Marijuana Preferred Language: Malay Combat Control Required: No Beliefs That Will Affect Care: None marital status: Current Living Situation: Significant Other current occupational status: employed 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 Physical Exam Gen: Sleeping, arousable. Generally cooperative. tearful when wrist moved. LUE: no splint, resting hand on belly. On inspection, no fusiform digit swelling. No dorsal skin changes. On the pearce side, there is no erythema, no significant edema. Fingers held with slight MP and IP flexion. Mild pain with AROM. Severe pain but soft mobility on passive stretch of the flexor compartment with wrist and finger extension. Able to actively and passively flex fingers. No proximal forearm tenderness. FAROM through elbow. Focal tenderness at palmar wrist. Nontender palm of hand along flexor sheath. Motion exam pain out of proportion to inspection and palpation. No palpable wrist effusion. Sensation grossly intact to light touch. Results & Data Results & Data Laboratory Results Laboratory Tests 02/06/22 02/06/22 02/06/22 11:40 11:40 11:40 WBC Plt Count Neut # (Auto) 7.50 H ESR 13 C-Reactive Protein 1.10 H 02/07/22 02/07/22 02/07/22 06:42 06:42 06:42 WBC 9.75 Plt Count 175 Neut # (Auto) ESR 12 C-Reactive Protein 5.[address] with no wrist effusion or focal fluid collection. Some evidence of focal tenosynovitis at the level of the wrist. No determination of etiology of infection vs inflammatory. PG Care Time/CCT Total # of Minutes Spent Total Time Spent with Patient: Total time spent is greater than 50% in coordination of care (as documented) at patient's floor/unit and/or counseling patient: Coding Level of Care Code 05094 Inpt Consult Level 4 Diagnoses Tenosynovitis of left wrist M65.9 Cellulitis L03.90
[2022-02-07] MEDS: ADVANCED PROBIOTIC 1250 MG CAPSULE PO SCH (08:47)
[2022-02-07] MEDS: NICOTINE 21 MG/24 HR TDSY TD SCH (08:48)
[2022-02-07] MEDS: oxyCODONE HCL IR 5 MG TAB (IMMEDIATE RELEASE) PO PRN ×2 (09:57→18:00)
[2022-02-07] MEDS ORDERED: LORazepam 0.5 MG TAB PO ONE (16:20)
[2022-02-07] MEDS ORDERED: GADOBUTROL 65ML VIAL IV ONE (17:42)
--- NOTE | 2022-02-07 18:00 | Magnetic Resonance Report ---
MR wrist LT wo/w con HISTORY: Left wrist pain. flexor tenosynovitis, inflam vs infection? TECHNIQUE: Multiplanar multisequence MRI of the left wrist was performed both before and after the in travenous administration of 6.4 cc of Gadavist contrast. COMPARISON STUDY: Left forearm CT 02/06/2022. FINDINGS: No fracture or dislocation within the left wrist. Normal marrow signal intensity seen throu ghout the visualized osseous structures. No evidence for osteomyelitis. The scapholunate, lunotriquet ral, and TFCC appear intact. There is a small amount of intra-articular fluid within the dorsal aspec t of the mid carpal row. Mild edema/fluid both within and surrounding the distal flexor digitorum mus cles. There is mild thickening of the flexor retinaculum with mild fullness of the median nerve. Ther e is trace edema within the carpal tunnel. There is also trace fluid surrounding the flexor tendons d istal to the carpal tunnel. There is mild subcutaneous edema along the dorsal aspect of the wrist. Th ere is also mild enhancement surrounding the flexor tendons within and distal to the carpal tunnel. IMPRESSION: 1. Nonspecific fluid/edema along the volar compartment of the distal forearm and wrist with associate d mild soft tissue enhancement. This primarily surrounds the flexor tendons and could represent an in fectious tenosynovitis/fasciitis. 2. Mild fullness within the carpal tunnel with slight thickening of the flexor retinaculum and mild t hickening of the median nerve suggestive of underlying carpal tunnel syndrome. This could be due to t he suspected infectious/inflammatory process. 3. No loculated fluid collections to suggest an abscess. 4. No abnormal marrow signal to suggest an osteomyelitis. 5. No fracture or dislocation within the wrist. 6. Small joint effusion dorsal to the mid carpal row. ACT 112: Negative or not required by law. Electronically signed by: Aly Puente M.D. 02/07/2022 5:58 PM
--- NOTE | 2022-02-07 22:51 | Hospitalist Progress Note ---
Date of Service February 07, 2022 Assessment & Plan (1) Tenosynovitis of left wrist: (2) Cellulitis: (3) Acute pain of left wrist: (4) Cat scratch of hand: (5) Fibromyalgia: (6) Tobacco use disorder: Plan This is a 41-year-old female with PMH of fibromyalgia, thoracic degenerative disc disease, IBS, tobacco use, medical marijuana use, depression and other medical problems listed below who presents with left wrist pain found to have cellulitis and severe tenosynovitis. 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 There is thickening and enhancement of the overlying flexor retinaculum, and the appearance suggests a severe nonspecific tenosynovitis. MRI wrist showed nonspecific fluid/edema along the volar compartment of the distal forearm and wrist with associated mild soft tissue enhancement. Mild fullness within the carpal tunnel with slight thickening of the flexor retinacu lum and mild thickening of the median nerve suggestive of underlying carpal tunnel syndrome. No loculated fluid collections to suggest an abscess. Ortho on board - No surgical intervention for now Continue IV abx with Clinda and Doxy Continue pain control Clinically improved Covid 19 Tested positive for COVID 19 on admission Pt had a COVID home test on 01/27 that was positive denies any Upper respiratory symptoms Saturated well on RA She does not meet criteria for steroid and remdesivir Continue monitor Tobacco use disorder Smokes 1 ppd. Counseling on smoking Cessation Continue Nicotine patch DVT Ppx: SCDs Code status: FULL PCP: S Radha Disposition Will discharge once medical stable Admission and Anticipated Discharge Date Admission Date: February 06, 2022 Subjective Pt was seen and examined for left wrist pain and cellulitis Lying in bed with no acute distress Pt said that left hand pain and swelling improve She continues to have tenderness when trying to open left hand Denies any chest pain, palpitation, dizziness and SOB Review of Systems Review of Systems: All systems reviewed & are unremarkable except as noted in Subjective Physical Exam Physical Exam: General- No acute distress Head- atraumatic Eyes- PERRL, EOMI, ENT- oropharynx clear Neck- supple, no JVD Lungs- clear to auscultation Heart- regular rhythm; no murmur Abdomen- normal bowel sounds, soft, nontender Extremities- no calf tenderness, wrist with TTP, erythema and edema. Neuro- alert, oriented x 3; PERRL, EOMI; no facial palsy; no dysarthria Skin- warm & dry Results & Data Results & Data ([facility]) Vital Signs (Past 12 Hours) Vital Signs Temp Pulse Resp BP Pulse Ox O2 Del Method 02/07/22 20:09 36.8 C 65 14 118/79 100 Room Air 02/07/22 16:04 36.9 C 71 14 126/79 99 Room Air
[2022-02-08] MEDS: KETOROLAC TROMETHAMINE 15 MG/ML VIAL IV SCH ×4 (00:05→18:11)
[2022-02-08] MEDS: CLINDAMYCIN/D5W 300 MG/50 ML BAG IV SCH ×3 (01:59→18:15)
[2022-02-08] MEDS: ACETAMINOPHEN 500 MG TAB PO SCH ×2 (02:00→09:32)
[2022-02-08] MEDS: DOXYCYCLINE HYCLATE 100 MG in DEXTROSE 5% 100 ML IV SCH ×2 (06:03→19:08)
--- NOTE | 2022-02-08 07:51 | Orthopedic Progress Note ---
Date of Service February 08, 2022 Assessment & Plan (1) Tenosynovitis of left wrist: (2) Carpal tunnel syndrome, left: Plan Clinical picture has been consistent with flexor tenosynovitis isolated to the wrist. She has not had any fusiform swelling that is usually seen with pyogenic tenosynovitis. She has responded to antibiotics, as well as Toradol. Etiology remains unclear, but she does present with a flexion contracture of the index, middle, ring and small fingers with extreme irritability to the carpal tunnel region. With the tenosynovitis and thickened carpal tunnel ligament, I think the next most conservative intervention is to perform a carpal tunnel release in irrigate and debride the tenosynovitis about the carpal tunnel. This will be done today. I discussed this with the patient and her mother. We discussed the risks of surgery include, but are not limited to, persistent infection, need for repeat or revision surgery, arthrofibrosis of the digits or wrist, nerve or vessel injury, wound healing complications, pain syndromes, failure to the preop symptoms, blood clots, and complications of anesthesia. We will plan for deep culture to help decide whether this is been an infection. If symptoms are improved, could consider transition to outpatient care as early as postop day 1 with stable antibiotic plan. She was consented for surgery this morning after the exam. Her mother was present. She is scheduled for surgery this afternoon. She should remain n.p.o. Subjective Came in for afternoon exam yesterday but she was an MRI. She reports that the MRI caused extreme pain and she could barely take it. Overall this morning though she feels slightly improved. She remained unable to fully extend the digits. Pain is located across her MP joints and down at the palmar side of her wrist. Reiterates that she has no history of this. No penetrating injuries. She states that there is no numbness today in the index middle and thumb. She does have pain, particularly at night that radiates to h er thumb. No fevers no chills Review of Systems All systems reviewed & are unremarkable except as noted in HPI & below. Physical Exam General: More awake and cooperative today. Less tearful. LUE: No significant change in appearance of the hand and wrist. There is no fusiform swelling of the digits. I cannot appreciate any erythema. There is slight edema over the base of the palm and distal forearm at the wrist crease. This is the area of maximal and exquisite tenderness, at about the area of the carpal tunnel. She also has tenderness just proximal to the wrist flexion creases as well as mildly in the palm. No tenderness to the palmar side of each digit. She remains in a flexed position primary through the PIP joints. I can passively extend these but the pain is significant. She does better with full digit flexion and wrist extension but this remains uncomfortable. Again, unable to actively extend index through small finger. Able to extend the thumb slightly but limited in abduction. No crepitus on palpation again this is extremely irritable. No tenderness about the proximal palmar forearm. There is a infiltrated IV site that has some ecchymosis and mild tenderness. Results & Data Results & Data Laboratory Results H & H 02/06/22 02/07/22 Range/Units 11:40 06:42 Hgb 13.2 12.0 (12.0-16.0) g/dl Hct 38.8 37.0 (34.1-44.9) % Diagnostic Findings MR imaging was obtained last evening. These results are very similar but more detail to the CT scan for my interpretation. She has a thickened and hypertrophied carpal tunnel ligament with fluid propagating along the tendon sheaths through the carpal tunnel and just proximal and distal. There is a midcarpal effusion of uncertain significance. No obvious fluid collection outside the tendon sheaths, which are significantly edematous. PG Care Time/CCT Total # of Minutes Spent Total Time Spent with Patient: Total time spent is greater than 50% in coordination of care (as documented) at patient's floor/unit and/or counseling patient: Coding Level of Care Code 32256 Subseq Hosp Care Lvl 3 (57 - DECISION FOR SURGERY) Diagnoses Tenosynovitis of left wrist M65.9 Carpal tunnel syndrome, left G56.02
[2022-02-08] MEDS: ADVANCED PROBIOTIC 1250 MG CAPSULE PO SCH (09:31)
[2022-02-08] MEDS: NICOTINE 21 MG/24 HR TDSY TD SCH (09:32)
--- NOTE | 2022-02-08 13:30 | Anesthesiology Consultation ---
Date of Service February 08, 2022 Assessment & Plan Chart Review Chart Review: Acceptable Risk for Surgery and Patient NOT seen in Pre Admission Testing ASA ASA2 Proposed Anesthesia Anesthesia Type: General Risk / Benefits Reviewed With: PT / POA / Parent / Guardian, Accepts Plan and Informed Consent Obtained History Surgery Operation Date: 02/08/22 11:10 Proposed Procedures p Left Forearm Incision and Drainage - Joshua Acosta MD s Carpal Tunnel Release - Joshua Acosta MD Height/Weight Height: 5 ft 3 in Weight: 64.9 kg Allergies Allergy/AdvReac Type Severity Reaction Status Date / Time Penicillins Allergy Unknown . Verified 06/04/19 12:10 tramadol Allergy Unknown DIZZINESS/LIGHT Unverified 06/04/19 12:10 HEADED Medications Home Medications Medication Instructions Recorded Confirmed Last Taken acetaminophen 500 mg tablet 500 mg PO TID PRN Pain 06/04/19 02/06/22 06/02/19 12:00 (Tylenol Extra Strength) Active Medications Generic Name Dose Route Start Last Admin Trade Name Freq PRN Reason Stop Dose Admin Acetaminophen 1,000 mg 02/06/22 17:30 02/08/22 09:32 Acetaminophen 500 Mg Tab PO 03/08/22 17:29 1,000 mg Q8H SUNITA Administration Hydromorphone HCl 0.5 mg 02/06/22 21:25 02/07/22 21:38 Hydromorphone Inj 0.5 Mg/0.5 Ml Syr IV 02/20/22 21:24 0.5 mg Q6H PRN Administration Severe Pain Doxycycline Hyclate 100 mg/ 110 mls @ 50 mls/hr 02/06/22 18:00 02/08/22 08:15 Dextrose IV 02/13/22 17:59 Infused Q12H SUNITA Infusion Clindamycin Phosphate 300 mg in 50 mls @ 100 mls/hr 02/06/22 18:00 02/08/22 10:10 Cleocin/D5w IV 02/13/22 17:59 Infused Q8H SUNITA Infusion Ketorolac Tromethamine 15 mg 02/06/22 18:00 02/08/22 12:20 Ketorolac Tromethamine 15 Mg/Ml Vial IV 02/11/22 17:59 15 mg Q6 SUNITA Administration Lactobacillus Acidophilus 2 cap 02/06/22 17:30 02/08/22 09:31 Advanced Probiotic 1250 Mg Capsule PO 03/08/22 17:29 2 cap DAILY SUNITA Administration Miscellaneous 1 each 02/07/22 08:59 02/08/22 09:32 Remove Nicoderm Patch N/A 03/09/22 08:58 1 each DAILY@[id number] SUNITA Administration Nicotine 21 mg 02/06/22 17:30 02/08/22 09:32 Nicotine 21 Mg/24 Hr Tdsy TD 03/08/22 17:29 21 mg QAM SUNITA Administration Oxycodone HCl 5 mg 02/06/22 17:17 02/07/22 18:00 Oxycodone Hcl Ir 5 Mg Tab (Immediate Release) PO 02/20/22 17:16 5 mg Q6H PRN Administration Severe Pain NPO Date Last Intake of Fluids: 02/07/22 Time Last Intake of Fluids: 23:59 Date Last Intake of Solids: 02/07/22 Time Last Intake of Solids: 23:59 Past Medical History Medical History Arthritis Arthritis of back Fibromyalgia IBS (irritable bowel syndrome) Smoker Tobacco use disorder Exercise / Class Metabolic Activity II 4-5 Yardwork/Stairs/Walk up hill Past Family History Family History Other Breast cancer Diabetes Hypertension Past Surgical History Surgical History H/O knee surgery Past Anesthesia History No Hx of Anesthesia Complications and No Family Hx of Anesthesia Complications History of PONV No Hx of PONV and No Hx of Motion Sickness Social History Smoking Status: Current every day smoker tobacco type: cigarettes Hx Alcohol Use: No Hx Substance Use: Yes substance use type: marijuana Review of Systems Constitutional: as per Subjective / HPI Eyes: as per Subjective / HPI Ear, Nose, Mouth, Throat: as per Subjective / HPI Respiratory: as per Subjective / HPI Cardiovascular: as per Subjective / HPI Gastrointestinal: as per Subjective / HPI Genitourinary (Female): as per Subjective / HPI Musculoskeletal: as per Subjective / HPI Integumentary: as per Subjective / HPI Neurologic: as per Subjective / HPI Psychiatric: as per Subjective / HPI Endocrine: as per Subjective / HPI Hematologic / Lymphatic: as per Subjective / HPI Allergy / Immunological: as per Subjective / HPI Physical Exam Vital Signs Last Vital Signs Temp 37 C 02/08/22 09:00 Pulse 64 02/08/22 09:00 Resp 16 02/08/22 09:00 BP 131/78 02/08/22 09:00 Pulse Ox 94 02/08/22 09:00 O2 Del Method 02/08/22 09:00 ENMT Mouth: no TMJ abnormality and no dentition abnormality Thyromental Distance: > or= 3.5 Finger Breadths Mallampati Class: II Neck normal visual inspection Respiratory normal respiratory effort Auscultation: lungs clear to auscultation bilaterally Cardiovascular Rate/Rhythm: regular rate and regular rhythm Heart Sounds: no murmur Musculoskeletal Extremities: extremities normal to inspection Neurologic moves all extremities Psychiatric Orientation: alert and oriented x 3 asymptomatic COVID + Testing Laboratory Results 02/07/22 06:42 02/07/22 06:42 02/06/22 17:45 Aerobic Blood Culture - Preliminary Blood No growth in Aerobic bottle after 24 hours. Anaerobic Blood Culture - Preliminary No growth in Anaerobic bottle after 24 hours. 02/06/22 17:45 Aerobic Blood Culture - Preliminary Blood No growth in Aerobic bottle after 24 hours. Anaerobic Blood Culture - Preliminary No growth in Anaerobic bottle after 24 hours.
[2022-02-08] MEDS: oxyCODONE HCL IR 5 MG TAB (IMMEDIATE RELEASE) PO PRN (13:35)
[2022-02-08] MEDS ORDERED: BUPIVACAINE 0.5 % 5 MG/1 ML MPF 30ML VIAL ONE (13:36)
[2022-02-08] MEDS ORDERED: LIDOCAINE 1% LOCAL 20 ML VIAL ONE (13:36)
[2022-02-08] MEDS ORDERED: PROPOFOL IV EMULSION 10 MG/ML 20 ML VIAL IV ONE (13:37)
[2022-02-08] MEDS ORDERED: LIDOCAINE 2% 20 MG/ML 5 ML SYR IV ONE (13:37)
[2022-02-08] MEDS ORDERED: MIDAZOLAM HCL 1 MG/ML 2ML VIAL ONE (13:38)
[2022-02-08] MEDS ORDERED: KETAMINE 50 MG/5 ML SYRINGE ONE (13:38)
[2022-02-08] MEDS ORDERED: HYDROmorphone INJ 2 MG/ML SYR/VIAL ONE (13:38)
[2022-02-08] MEDS ORDERED: fentaNYL citrate 100 MCG/2 ML VIAL ONE (13:38)
[2022-02-08] MEDS ORDERED: DEXAMETHASONE SOD INJ 4 MG/ML VIAL ONE (13:39)
[2022-02-08] MEDS ORDERED: ONDANSETRON INJ 2 MG/ML 2 ML VIAL ONE (13:39)
--- NOTE | 2022-02-08 13:54 | Hospitalist Progress Note ---
Date of Service February 08, 2022 Assessment & Plan (1) Tenosynovitis of left wrist: (2) Cellulitis: (3) Acute pain of left wrist: (4) Cat scratch of hand: (5) Fibromyalgia: (6) Tobacco use disorder: Plan This is a 41-year-old female with PMH of fibromyalgia, thoracic degenerative disc disease, IBS, tobacco use, medical marijuana use, depression and other medical problems listed below who presents with left wrist pain found to have cellulitis and severe tenosynovitis. 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 There is thickening and enhancement of the overlying flexor retinaculum, and the appearance suggests a severe nonspecific tenosynovitis. MRI wrist showed nonspecific fluid/edema along the volar compartment of the distal forearm and wrist with associated mild soft tissue enhancement. Mild fullness within the carpal tunnel with slight thickening of the flexor retinacu lum and mild thickening of the median nerve suggestive of underlying carpal tunnel syndrome. No loculated fluid collections to suggest an abscess. Ortho on board Continue IV abx with Clinda and Doxy Ortho plan to take to OR toperform a carpal tunnel release in irrigate and debride the tenosynovitis about the carpal tunnel. Continue pain control Clinically improved Keep NPO for now Covid 19 Tested positive for COVID 19 on admission Pt had a COVID home test on 01/27 that was positive denies any Upper respiratory symptoms Saturated well on RA She does not meet criteria for steroid and remdesivir Continue monitor Tobacco use disorder Smokes 1 ppd. Counseling on smoking Cessation Continue Nicotine patch DVT Ppx: SCDs Code status: FULL PCP: S Anatolyhouser Disposition Will discharge once medical stable Admission and Anticipated Discharge Date Admission Date: February 06, 2022 Subjective Pt was seen and examined for left wrist pain and cellulitis Lying in bed with no acute distress Pt said that left hand pain and swelling improves She said that she pain and swelling continue to improve in the left hand Denies any chest pain, palpitation, dizziness and SOB Review of Systems Review of Systems: All systems reviewed & are unremarkable except as noted in Subjective Physical Exam Physical Exam: General- No acute distress Head- atraumatic Eyes- PERRL, EOMI, ENT- oropharynx clear Neck- supple, no JVD Lungs- clear to auscultation Heart- regular rhythm; no murmur Abdomen- normal bowel sounds, soft, nontender Extremities- no calf tenderness, wrist with TTP, erythema and edema. Neuro- alert, oriented x 3; PERRL, EOMI; no facial palsy; no dysarthria Skin- warm & dry Results & Data Results & Data ([facility]) Vital Signs (Past 12 Hours) Vital Signs Temp Pulse Resp BP Pulse Ox Pulse Ox O2 Del Method 02/08/22 09:00 94 02/08/22 09:00 37 C 64 16 131/78 98 Room Air O2 Del Method 02/08/22 09:00 Room Air 02/08/22 09:00
[2022-02-08] MEDS ORDERED: ceFAZolin 330 MG/ML 1 GM VIAL ONE (13:55)
[2022-02-08] MEDS ORDERED: ATROPINE SULFATE 0.1 MG/ML 10ML SYR IV PRN (15:24)
[2022-02-08] MEDS ORDERED: LABETALOL HCL IV 5 MG/ML 20ML IV PRN (15:24)
[2022-02-08] MEDS ORDERED: fentaNYL citrate 100 MCG/2 ML VIAL IV PRN (15:24)
[2022-02-08] MEDS ORDERED: ONDANSETRON INJ 2 MG/ML 2 ML VIAL IV PRN (15:24)
[2022-02-08] MEDS ORDERED: PHENYLEPHRINE 100MCG/ML 5ML SYR IV PRN (15:24)
[2022-02-08] MEDS ORDERED: MEPERIDINE HCL 25 MG/ML CARP/VIAL IV PRN (15:24)
[2022-02-08] MEDS ORDERED: ePHEDrine sulfate 50 MG/ML AMP IV PRN (15:24)
--- NOTE | 2022-02-08 15:54 | Operative Report ---
PG Post Operative Report Pre & Post Diagnosis Operation Date: 02/08/22 11:10 Pre-Op Diagnosis: Tenosynovitis of left wrist; carpal tunnel syndrome, left. Post-Op Diagnosis: Tenosynovitis of left wrist; carpal tunnel syndrome, left. I identified the patient and participated in the time-out.: Yes Procedure Operation Date: 02/08/22 11:10 Actual Procedures p Left forearm flexor compartment incision and debridement, open carpal Tunnel Release(Left) - Joshua Acosta MD Surgeon Joshua Acosta MD Harness And Bag Inspector Eric Carty PA-C Estimated Blood Loss 5 Findings See Below Full passive range of motion to the wrist and digits. No subcutaneous edema or purulence. Carpal tunnel was released full and full and there was some purulent appearing yellow fluid along the flexor tendons in the compartment. This was sent for culture. There was thickened yellow synovium throughout the flexor compartmentthis was sent for specimen. Specimens Flexor compartment tenosynovium Complications none Disposition Accompanied Patient To Recovery: No Disposition: Recovery Room Indications 41-year-old female admitted with severe wrist pain. She improved slightly with rest, elevation and parenteral antibiotics. Due to persistence of a flexion contracture and ongoing pain, we obtained an MRI which demonstrated thickened tenosynovium throughout the carpal tunnel. He had a picture suggestive of acute carpal tunnel syndrome without paresthesias. I discussed these findings of the MRI and offered incision and debridement with carpal tunnel release in order to expedite treatment if this is a pyogenic tenosynovium. We discussed the risks and benefits in detail, as outlined in the consult note. Informed consent was obtained in the patient room this morning. Description of Procedure On the day of surgery, the patient was greeted in the preoperative holding area. The informed consent was reviewed and confirmed by myself and the patient. The patient identified the surgical site and was marked by me. The patient was then turned over to anesthesia. She was taken to the operating room with COVID precautions. She was placed in the OR table. IV access was established, and and anesthesia was induced. The airway was secured. She was left supine with a hand table attached to the OR table. A nonsterile tourniquet is placed high on the arm. The left upper extremity was then prepped and draped in usual sterile fashion using ChloraPrep. Surgical timeout was called by the circulating nurse, and verified all present. Antibiotics infused and equipment was available and functional. An Esmarch bandage was used to exsanguinate the extremity and the tourniquet was inflated to 250 mmHg for a total of less than 30 minutes. Incision was planned out over the carpal tunnel in a standard fashion extending down over the volar Daniel approach. Incision was made and dissection was carried out using tenotomy scissors. Bovie electrocautery was used minimally for hemostasis. We incised underneath the FCR tendon sheath to expose the flexor tendons. There was no obvious purulence here. We extended our dissection towards the carpal tunnel ligament. This was released using a micro [place] blade. After the carpal tunnel release there was flow of yellow purulent thick fluid distally into the palmar flexor tendon structures. Swab cultures were taken here. We then thoroughly irrigated the flexor compartment. There was thickened synovium causing adherence of the various tendons to each other. The nerve appeared to have a thickened yellow appearance. I debrided the flexor tendons of some of the synovium and sent it for specimen. After the gentle debridement, we performed another thorough irrigation with a total liter of sterile normal saline. Once the wound bed was clean, we proceeded with closure. 3oh antibiotic impregnated Vicryl suture was used on the deep dermal tissue. Final skin closure consisted of 3-0 nylon stitches in a mattress fashion. Tourniquet was let down. There was adequate hemostasis. The wound was dressed with sterile Xeroform, sterile gauze, ABD and contained by web roll. A volar Ortho-Glass splint was applied. Patient tolerated procedure well, was extubated in the operating room without complication, and transferred to the recovery area with COVID precautions in stable condition. Disposition: She should remain an inpatient for parenteral antibiotic therapy. We will wait for culture results before transition to an oral regimen. We will presume this was indolent pyogenic tenosynovitis isolated to the carpal tunnel region. She should have strict elevation and can be range of motion as tolerated to the digits. Physician economic research assistant attestation: Eric Carty PA-C was present and scrubbed for the duration of the case. He was essential to prepping/draping, patient positioning, retraction, and assistance with wound closure. I attest to the content of the Intraoperative Record and any orders documented therein. Any exceptions are noted below.
--- NOTE | 2022-02-08 16:20 | Anesthesiology Progress Note ---
Date of Service February 08, 2022 Anesthesia Post Procedure Vital Signs Vital Signs: Temp Pulse Pulse Resp BP BP Pulse Ox 02/08/22 16:15 68 15 148/72 H 100 02/08/22 16:05 80 12 152/75 H 100 02/08/22 15:55 36.2 C L 56 L 12 147/81 H 100 02/08/22 09:00 02/08/22 09:00 37 C 64 16 131/78 98 02/07/22 21:35 02/07/22 21:35 02/07/22 20:09 36.8 C 65 14 118/79 100 Pulse Ox O2 Del Method O2 Del Method O2 Flow Rate 02/08/22 16:15 Oxymask 4 02/08/22 16:05 Oxymask 4 02/08/22 15:55 Oxymask 6 02/08/22 09:00 94 Room Air 02/08/22 09:00 Room Air 02/07/22 21:35 Room Air 02/07/22 21:35 100 Room Air 02/07/22 20:09 Room Air Pain Intensity Left Wrist: Pain Intensity: 2 Transfer of Care Handoff Completed per policy Notes Mental Status: alert / awake / arousable Patient Amnestic to Procedure: Yes Nausea / Vomiting: adequately controlled Pain: adequately controlled Airway Patency, RR, SpO2: stable & adequate BP & HR: stable & adequate Hydration State: stable & adequate Anesthetic Complications: no major complications apparent and Pt Satisfied with anesthetic care
[2022-02-09] MEDS: CLINDAMYCIN/D5W 300 MG/50 ML BAG IV SCH ×3 (01:00→17:49)
[2022-02-09] MEDS: KETOROLAC TROMETHAMINE 15 MG/ML VIAL IV SCH ×5 (01:00→23:18)
[2022-02-09] MEDS: DOXYCYCLINE HYCLATE 100 MG in DEXTROSE 5% 100 ML IV SCH ×2 (06:13→18:38)
[2022-02-09] MEDS: NICOTINE 21 MG/24 HR TDSY TD SCH (08:54)
[2022-02-09] MEDS: ADVANCED PROBIOTIC 1250 MG CAPSULE PO SCH (08:55)
[2022-02-09 09:12] LABS: Hemoglobin 12.3 g/dl (12.0-16.0); Mean Corpuscular Hemoglobin 30.7 pg (25.0-34.0); Mean Corpuscular Hgb Conc 34.2 g/dL (32.0-36.0); Mean Corpuscular Volume 89.8 fL (80.0-100.0); Platelet Count 289 K/uL (130-400); RDW Coefficient of Variation 13.4 % (11.5-14.5); RDW Standard Deviation 44.5 fL (36.4-46.3); Red Blood Count 4.01 M/uL (3.93-5.22); White Blood Count 11.77 K/ul (4.8-10.8)
[2022-02-09 09:36] LABS: BUN Creatinine Ratio 27.9 (10-20); Calcium 9.2 mg/dl (8.5-10.1); Est GFR (African American) 146.4 ml/min; Est GFR (Non-African American) 126.3 ml/min
[2022-02-09] MEDS: oxyCODONE HCL IR 5 MG TAB (IMMEDIATE RELEASE) PO PRN ×2 (12:33→22:02)
--- NOTE | 2022-02-09 13:24 | Orthopedic Progress Note ---
Date of Service February 09, 2022 Assessment & Plan (1) Carpal tunnel syndrome, left: (2) Tenosynovitis of left wrist: S/p L carpal tunnel release, I&D (DOS 02/08/2022; Dr. Acosta) -Looks good on POD 1 -Maintain splint/dressing. Limited use of LUE. -Continue current antibiotics, follow cultures; NGTD thus far. -Continue current pain regimen. Dispo: Will follow. Likely OK for discharge from Ortho standpoint ok POD 2 pending culture results. Follow up with Dr. Acosta in clinic in 2 weeks. Subjective Feels good today. Minimal hand pain, pain meds controlling pain adequately. No majors concerns. Review of Systems All systems reviewed & are unremarkable except as noted in HPI & below. Physical Exam General: Pleasant 41 y/o/f resting in bed in NAD. AAO x 4 Left hand: Dressing kept in place, C/D/I. Can fully flex and extend all fingers but has some lingering pain with terminal extension of 4th digit. Distally N/V/I. . Results & Data Results & Data Laboratory Results Reviewed . Diagnostic Findings Reviewed. Cultures/GS w/ NGTD. . PG Care Time/CCT Total # of Minutes Spent Total Time Spent with Patient: Total time spent is greater than 50% in coordination of care (as documented) at patient's floor/unit and/or counseling patient: Coding Level of Care Code 79666 Post Operative Follow-Up Diagnoses Carpal tunnel syndrome, left G56.02 Tenosynovitis of left wrist M65.9
--- NOTE | 2022-02-09 17:54 | Hospitalist Progress Note ---
Date of Service February 09, 2022 Assessment & Plan (1) Tenosynovitis of left wrist: (2) Cellulitis: (3) Acute pain of left wrist: (4) Cat scratch of hand: (5) Fibromyalgia: (6) Tobacco use disorder: Plan This is a 41-year-old female with PMH of fibromyalgia, thoracic degenerative disc disease, IBS, tobacco use, medical marijuana use, depression and other medical problems listed below who presents with left wrist pain found to have cellulitis and severe tenosynovitis. 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 There is thickening and enhancement of the overlying flexor retinaculum, and the appearance suggests a severe nonspecific tenosynovitis. MRI wrist showed nonspecific fluid/edema along the volar compartment of the distal forearm and wrist with associated mild soft tissue enhancement. Mild fullness within the carpal tunnel with slight thickening of the flexor retinacu lum and mild thickening of the median nerve suggestive of underlying carpal tunnel syndrome. No loculated fluid collections to suggest an abscess. Ortho on board -appreciate input and recommendation Continue IV abx with Clinda and Doxy Ortho plan to take to OR toperform a carpal tunnel release in irrigate and debride the tenosynovitis about the carpal tunnel. Continue pain control Clinically much better and will continue intravenous antibiotic as of today Likely discharge tomorrow on oral antibiotic Covid 19 Tested positive for COVID 19 on admission Pt had a COVID home test on 01/27 that was positive denies any Upper respiratory symptoms Saturated well on RA She does not meet criteria for steroid and remdesivir Continue monitor Tobacco use disorder Smokes 1 ppd. Counseling on smoking Cessation Continue Nicotine patch DVT Ppx: SCDs Code status: FULL PCP: S Radha Disposition Will discharge once medical stable Admission and Anticipated Discharge Date Admission Date: February 09, 2022 Subjective 02/09/2022 The patient was seen and examined in medical floor Her pain and swelling in the left forearm have improved Denies any other symptoms, especially no fever and or chills Been ambulating in the room without any problem Review of Systems Review of Systems: All systems reviewed and are unremarkable except as noted below Physical Exam Physical Exam: Lying in bed comfortably Constitutional: average body habitus; not ill appearing Respiratory: no respiratory distress Auscultation: lungs clear to auscultation bilaterally; no crackles Cardiovascular: Rate/Rhythm: regular rate and regular rhythm; not tachycardic Heart Sounds: normal S1 and normal S2; no murmur Extremities: no edema Gastrointestinal (Abdomen): Inspection/Auscultation: normal bowel sounds; abdomen not distended Percussion/Palpation: abdomen soft; abdomen nontender Musculoskeletal: Left forearm is in bandage status post I&D Neurologic: Alert, awake and oriented x3 Psychiatric: A+Ox3, euthymic affect Results & Data Results & Data ([facility]) Vital Signs (Past 12 Hours) Vital Signs Temp Pulse Pulse Resp BP Pulse Ox Pulse Ox 02/09/22 11:00 36.7 C 80 16 120/69 98 02/09/22 08:30 97 02/09/22 06:20 36.9 C 65 16 167/65 H 97 O2 Del Method O2 Del Method 02/09/22 11:00 Room Air 02/09/22 08:30 Room Air 02/09/22 06:20 Room Air Laboratory Results Short CBC 02/09/22 Range/Units 08:37 WBC 11.77 H (4.8-10.8) K/ul Hgb 12.3 (12.0-16.0) g/dl Hct 36.0 (34.1-44.9) % Plt Count 289 (130-400) K/uL BMP 02/09/22 08:37 Sodium 136 Potassium 4.0 Chloride 108 H Carbon Dioxide 21 BUN 12 Creatinine 0.43 L Glucose 99 Calcium 9.2 Medications Administered Current Inpatient Medications Acetaminophen (Acetaminophen 325 Mg Tab) 650 mg PO Q4H PRN PRN Reason: pain/fever Stop: 03/08/22 17:05 Hydromorphone HCl (Hydromorphone Inj 0.5 Mg/0.5 Ml Syr) 0.5 mg IV Q6H PRN PRN Reason: Severe Pain Stop: 02/20/22 21:24 Last Admin: 02/07/22 21:38 Dose: 0.5 mg Doxycycline Hyclate 100 mg/ (Dextrose) 110 mls @ 50 mls/hr IV Q12H [facility] Stop: 02/13/22 17:59 Last Infusion: 02/09/22 08:25 Dose: Infused Clindamycin Phosphate (Cleocin/D5w) 300 mg in 50 mls @ 100 mls/hr IV Q8H [facility] Stop: 02/13/22 17:59 Last Admin: 02/09/22 17:49 Dose: 100 mls/hr Ketorolac Tromethamine (Ketorolac Tromethamine 15 Mg/Ml Vial) 15 mg IV Q6 [facility] Stop: 02/11/22 17:59 Last Admin: 02/09/22 17:46 Dose: 15 mg Lactobacillus Acidophilus (Advanced Probiotic 1250 Mg Capsule) 2 cap PO DAILY [facility] Stop: 03/08/22 17:29 Last Admin: 02/09/22 08:55 Dose: 2 cap Miscellaneous (Remove Nicoderm Patch) 1 each N/A DAILY@0859 [facility] Stop: 03/09/22 08:58 Last Admin: 02/09/22 08:55 Dose: 1 each Nicotine (Nicotine 21 Mg/24 Hr Tdsy) 21 mg TD QAM [facility] Stop: 03/08/22 17:29 Last Admin: 02/09/22 08:54 Dose: 21 mg Ondansetron HCl (Ondansetron Inj 2 Mg/Ml 2 Ml Vial) 4 mg IV Q6H PRN PRN Reason: Nausea Stop: 03/08/22 17:05 Oxycodone HCl (Oxycodone Hcl Ir 5 Mg Tab (Immediate Release)) 5 mg PO Q6H PRN PRN Reason: Severe Pain Stop: 02/20/22 17:16 Last Admin: 02/09/22 12:33 Dose: 5 mg Polyethylene Glycol (Polyethylene (Miralax) 17 Gm Pack) 17 gm PO DAILY PRN PRN Reason: Constipation Stop: 03/08/22 17:05
[2022-02-09] MEDS: DOXYCYCLINE HYCLATE 100 MG CAP PO SCH (22:02)
[2022-02-09] MEDS: CLINDAMYCIN HCL 150 MG CAP PO SCH (22:03)
[2022-02-10] MEDS: KETOROLAC TROMETHAMINE 15 MG/ML VIAL IV SCH ×3 (05:32→13:50)
[2022-02-10 09:15] LABS: Basophils # (auto) 0.04 K/uL (0-0.2); Basophils % (auto) 0.4 %; Eosinophils # (auto) 0.12 K/uL (0-0.50); Eosinophils % (auto) 1.2 %; Hematocrit (blood only) 38.9 % (34.1-44.9); Immature Granulocytes # (auto) 0.02 K/uL (0.00-0.02); Immature Granulocytes % (auto) 0.2 %; Lymphocytes # (auto) 2.94 K/uL (1.2-3.4); Lymphocytes % (auto) 30.2 %; Mean Corpuscular Hemoglobin 30.2 pg (25.0-34.0); Mean Corpuscular Hgb Conc 33.4 g/dL (32.0-36.0); Mean Corpuscular Volume 90.5 fL (80.0-100.0); Mean Platelet Volume 10.5 fL (9.4-12.3); Monocytes # (auto) 0.84 K/uL (0.24-0.82); Monocytes % (auto) 8.6 %; Neutrophils # (auto) 5.78 K/uL (1.4-6.5); Neutrophils % (auto) 59.4 %; Platelet Count 351 K/uL (130-400); RDW Coefficient of Variation 13.7 % (11.5-14.5); RDW Standard Deviation 46.2 fL (36.4-46.3); White Blood Count 9.74 K/ul (4.8-10.8)
[2022-02-10] MEDS: CLINDAMYCIN HCL 150 MG CAP PO SCH ×2 (09:16→14:25)
[2022-02-10] MEDS: DOXYCYCLINE HYCLATE 100 MG CAP PO SCH (09:16)
[2022-02-10] MEDS: NICOTINE 21 MG/24 HR TDSY TD SCH (09:16)
[2022-02-10] MEDS: ADVANCED PROBIOTIC 1250 MG CAPSULE PO SCH (09:16)
[2022-02-10 09:32] LABS: BUN Creatinine Ratio 21.8 (10-20); Calcium 9.1 mg/dl (8.5-10.1); Est GFR (Non-African American) 116.5 ml/min; Potassium 4.3 mmol/L (3.5-5.1)
--- NOTE | 2022-02-10 14:07 | Hospitalist Progress Note ---
Date of Service February 10, 2022 Assessment & Plan (1) Tenosynovitis of left wrist: (2) Cellulitis: (3) Acute pain of left wrist: (4) Cat scratch of hand: (5) Fibromyalgia: (6) Tobacco use disorder: Plan This is a 41-year-old female with PMH of fibromyalgia, thoracic degenerative disc disease, IBS, tobacco use, medical marijuana use, depression and other medical problems listed below who presents with left wrist pain found to have cellulitis and severe tenosynovitis. 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 There is thickening and enhancement of the overlying flexor retinaculum, and the appearance suggests a severe nonspecific tenosynovitis. MRI wrist showed nonspecific fluid/edema along the volar compartment of the distal forearm and wrist with associated mild soft tissue enhancement. Mild fullness within the carpal tunnel with slight thickening of the flexor retinacu lum and mild thickening of the median nerve suggestive of underlying carpal tunnel syndrome. No loculated fluid collections to suggest an abscess. Ortho on board -appreciate input and recommendation Continue IV abx with Clinda and Doxy POD#2 s/p carpal tunnel release in irrigate and debride the tenosynovitis Continue pain control Clinically much better. Transitioned to PO clinda and doxy, continue for 14 day course total maintain splint, follow up with ortho - LUE use restrictions per ortho Covid 19 Tested positive for COVID 19 on admission Pt had a COVID home test on 01/27 that was positive denies any Upper respiratory symptoms Saturated well on RA She does not meet criteria for steroid and remdesivir Continue monitor Tobacco use disorder Smokes 1 ppd. Counseling on smoking Cessation Continue Nicotine patch DVT Ppx: SCDs Code status: FULL PCP: S Radha Admitted to med/surg. Possible discharge later this afternoon Patient seen in collaboration with Dr. Peterson. Please see addendum. Admission and Anticipated Discharge Date Admission Date: February 09, 2022 Supervising Physician Co-Signing Physician Notes Attending addendum: The patient was seen and examined in medical floor She has been doing much better and denies to have any significant pain in the left upper extremity She denies any symptoms of cough, shortness of breath or any fever and or chills On examination Lying in bed comfortably Hemodynamically stable Chestclear to auscultate bilaterally HeartS1-S2, regular Abdomenbenign Extremitiesno edema Left forearm is in bandaged. Her labs, imaging studies and medications reviewed Agree with the assessment plan and as mentioned above by SYED Harris DR Subjective Patient seen and examined in 300-1. Postop day 2. Pain and swelling in left forearm and hand have improved. Some discomfort around wrist with dressing that developed overnight. Range of motion in fingers has improved as well. No fever, chills, chest pain, shortness of breath or abdominal pain, dysuria, diarrhea constipation. Review of Systems Review of Systems: All systems reviewed and are unremarkable except as noted below Physical Exam Physical Exam: Gen: WD/WN, NAD, sitting in bed, A&Ox3 HEENT: Normocephalic, atraumatic, conjunctivae moist, sclerae anicteric, mucous membranes moist Lung: Clear to Auscultation bilaterally, no wheezes/rales/rhonchi Heart: Regular rate, regular rhythm, no murmurs, rubs, or gallops Abdomen: Soft, NT, ND +BS x 4 Extremities:L forearm in splint/dressing c/d/i, moving fingers without issue Skin: Warm, no rash Results & Data Results & Data ([facility]) Vital Signs (Past 12 Hours) Vital Signs Temp Pulse Resp BP Pulse Ox O2 Del Method 02/10/22 08:30 Room Air 02/10/22 08:28 36.5 C 70 18 113/68 97 Room Air
[2022-02-10] MEDS ORDERED: IBUPROFEN 200 MG TAB PO PRN (14:44)
--- NOTE | 2022-02-10 16:22 | Discharge Summary ---
Date of Service February 10, 2022 Admission HPI Per Admitting Provider This is a 41-year-old female with PMH of fibromyalgia, thoracic degenerative disc disease, IBS, tobacco use, medical marijuana use, depression and other medical problems listed below who presents with left wrist pain. States that pain began 3 days ago and is a sharp shooting pain that is 8/10 even after fentanyl in the ER. Also endorses inability to flex third through fifth fingers and paresthesias in left forearm. 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 States she has history of arthritis but this feels much more painful and severe. Has kittens at home and has had scratches to left hand recently. Only 1 small scratch remaining on left thumb. Denies any fever or chills. No chest pain, shortness of breath, nausea, vomiting, abdominal pain, dysuria, diarrhea or constipation. Of note, patient tested positive for COVID on January 27. Does not feel symptomatic any longer. Smokes 1 pack a day of cigarettes. Is not on any home medications. Recently prescribed small dose of Zoloft to trial but instructed by Dr. Traore to not start for another week due to recent COVID infection. Admission Exam Per Admitting Provider General Appearance:WD/WN, vitals as above, NAD, sitting up in bed, in acute pain Head: normocephalic, atraumatic Eyes:normal inspection, PERRL, conjunctivae normal, anicteric sclerae ENT: external ear and nose normal, oropharynx normal Neck: normal visual inspection, trachea midline, no thyromegaly Respiratory:normal respiratory effort, lungs clear to auscultation, no wheeze, rales, rhonchi. No accessory muscle use Cardiovascular: regular rate, rhythm, no murmur, normal peripheral pulses, no BLE edema. Vessels: no JVD Chest: normal inspection of chest Abdomen/GI: normal bowel sounds, soft, nontender, no hepatosplenomegaly Extremities/Musculoskeletal: no cyanosis or clubbing, extremities motor strength 5/5. + L ventral aspect of wrist with TTP, erythema and edema. No crepitus. Difficulty flexing 3rd-5th digits on L hand 2/2 pain Neurologic: PERRL, EOMI, accommodation nl, no face palsy, no dysarthria, CN's I I-XI intact bilaterally and moves all extremities Psychiatric:A+Ox3, euthymic affect Skin: no rashes, normal color, warm/dry Principal Diagnosis Tenosynovitis, cellulitis of left wrist Discharge Exam Gen: WD/WN, NAD, sitting in bed, A&Ox3 HEENT: Normocephalic, atraumatic, conjunctivae moist, sclerae anicteric, mucous membranes moist Lung: Clear to Auscultation bilaterally, no wheezes/rales/rhonchi Heart: Regular rate, regular rhythm, no murmurs, rubs, or gallops Abdomen: Soft, NT, ND +BS x 4 Extremities:L forearm in splint/dressing c/d/i, moving fingers without issue Skin: Warm, no rash Discharge Data Allergies Allergy/AdvReac Type Severity Reaction Status Date / Time Penicillins Allergy Unknown . Verified 06/04/19 12:10 tramadol Allergy Unknown DIZZINESS/LIGHT Unverified 06/04/19 12:10 HEADED Consultations 02/06/22 14:43 ED Decision to Admit Stat 02/06/22 17:12 Consult Orthopedic Surgery Routine Procedures Performed Operation Date: 02/08/22 11:10 Actual Procedures p Left Carpal Tunnel Release(Left) - Joshua Acosta MD Ordered Studies 02/06/22 11:28 US venous doppler UE LT Stat 02/06/22 13:21 CT forearm LT w con Stat 02/07/22 08:39 MR wrist LT wo/w con Urgent Hospital Course (1) Tenosynovitis of left wrist: (2) Cellulitis: (3) Acute pain of left wrist: (4) Cat scratch of hand: (5) Fibromyalgia: (6) Tobacco use disorder: Plan This is a 41-year-old female with PMH of fibromyalgia, thoracic degenerative disc disease, IBS, tobacco use, medical marijuana use, depression and other medical problems listed below who presents with left wrist pain found to have cellulitis and severe tenosynovitis. Patient with multiple cat scratches from kittens. CT L forearm showed significant edema and fluid seen around the flexor tendons in the distal forearm/wrist. There is thickening and enhancement of the overlying flexor retinaculum, and the appearance suggests a severe nonspecific tenosynovitis. MRI wrist showed nonspecific fluid/edema along the volar compartment of the distal forearm and wrist with associated mild soft tissue enhancement. Mild fullness within the carpal tunnel with slight thickening of the flexor retinaculum and mild thickening of the median nerve suggestive of underlying carpal tunnel syndrome. No loculated fluid collections to suggest an abscess. On clindamycin and doxycycline, complete 14-day course. Evaluated by orthopedics, POD#2 s/p carpal tunnel release in irrigate and debridement. Maintain splint, Ortho follow-up. Patient also tested positive for known COVID- 19 infection while admitted; asymptomatic does not meet criteria for steroid or remdesivir. Patient afebrile hemodynamically stable at time of discharge home. Total Time Total Time Spent Total Time Spent (In Minutes): 35 Discharge Plan Discharge Items Patient Disposition: Home - Self-Care Reason For Visit: RUE CELLULITIS,WRIST PAIN,COVID Discharge Diagnosis: Tenosynovitis of left wrist, cellulitis of left wrist Condition on Discharge: Good Activity: Per Instructions section Non-emergency contact: Primary Care Provider Call non-emergency contact if: you have any medication questions, your symptoms worsen and your pain is not controlled Follow-up/Referrals: Joshua Acosta MD [Surgeon] - Kailash Garcia DO [Primary Care Provider] - (Date & Time 02/17/2022 11:00 AM Provider Gabriel Cisneros III, MD Department [facility] ) Diet: Regular Addtl Attending Provider Instructions: You were admitted for left wrist pain and found to have tenosynovitis and cellulitis of left wrist in setting of cat scratches. Underwent carpal tunnel release in irrigate and debridement in OR for the tenosynovitis on 02/08/22 with improvement to pain and mobility Continue Clinda and Doxy for 14 days total No growth on cultures to date Maintain splint, movement instructions per orthopedics. Follow up in ortho clinic as below You also tested positive for covid on admission (home test reported positive on 01/27/22). Asymptomatic MEDICATION CHANGES: Clindamycin 300mg 3x daily until gone Doxycycline 100mg 2x daily unti gone Continue probiotic 2 caps daily until antibiotics completed Ibuprofen and tylenol as needed for pain RECOMMENDATIONS FOR FOLLOW-UP: Please follow up with Dr. Garcia as mentioned above for hospital follow up. Please follow up with Dr. Acosta (orthopedics) per instructions. OTHER INSTRUCTIONS: Seek medical attention if you have: * temperature above 101 * chest pain or trouble breathing * abdominal pain, nausea, vomiting * diarrhea, dark stools or bloody stools * any unanswered questions or concerns Call 911 if symptoms are severe. Please take good care of yourself. Call if you have any questions or problems. You can reach a [facility] hospitalist on duty at [facility] 24 hours a day by calling [phone]. Delores Montgomery PA-C [facility] Hospitalist Pending Studies at Discharge: No Stand-Alone Forms: My [facility], Smoking Cessation Medications and DC Order Prescriptions: New Advanced Probiotic 625 mg (10 billion cell) Capsule 2 cap PO DAILY Qty: 20 0RF Rx Instructions: Take 2 caps daily until completion of antibiotic course. doxycycline hyclate 100 mg Capsule 100 mg PO BID 9 Days Qty: 18 0RF Rx Instructions: Take twice a day until course completed. clindamycin HCl [Cleocin HCl] 300 mg capsule 600 mg PO TID 9 Days Qty: 54 0RF Rx Instructions: Take three times a day until course completed. Continued acetaminophen [Tylenol Extra Strength] 500 mg Tablet 500 mg PO TID PRN (Reason: Pain) Discharge Orders: Discharge Order (Routine); Ordered 02/10/22 Ordered By: Delores Montgomery Admission Data Admit Date/Time: 02/09/22 09:07 Attending Provider: Tesfaye Peterson Admit Provider: Chaim Crane Primary Care Provider: Kailash Garcia Other Providers: Chaim Crane ; Joshua Acosta ; Brian Dawkins ; Delores Montgomery Other Interventions: Discharge Summary Assessment (RN) Last Done: 02/10/22 16:44 Supervising Physician Co-Signing Physician Notes Attending addendum: The patient was seen and examined in medical floor She has been doing much better and denies to have any significant pain in the left upper extremity She denies any symptoms of cough, shortness of breath or any fever and or chills On examination Lying in bed comfortably Hemodynamically stable Chestclear to auscultate bilaterally HeartS1-S2, regular Abdomenbenign Extremitiesno edema Left forearm is in bandaged. Her labs, imaging studies and medications reviewed Agree with the assessment plan and the summary as mentioned above by SYED Harris DR
--- NOTE | 2022-02-10 17:32 | Orthopedic Progress Note ---
Date of Service February 10, 2022 Assessment & Plan (1) Tenosynovitis of left wrist: (2) Carpal tunnel syndrome, left: Plan Okay with discharged outpatient care. She should continue oral antibiotic regimen to completion. Would like to see her back in the orthopedic clinic in 10-14 days for wound check and likely suture removal. She should leave the splint in place. She can be range of motion as tolerated to the digits. Subjective Postop day 2 She reports pain is much improved. She is gaining motion back to her fingers including full extension with minimal discomfort. The splint was uncomfortable and felt tight. She was glad to have it changed out today. She wants to go home. Her IV site in her right upper extremity failed. She is already transitioned over to oral antibiotic therapy. Review of Systems All systems reviewed & are unremarkable except as noted in HPI & below. Physical Exam LUE: Splint was taken down. The wound was well approximated without erythema or active drainage. She demonstrated guarded but near full range of motion of the wrist. She had full extension of her fingers for the first time in this hospitalization on my exam. Constitutional WD/WN, vitals as above no acute distress and not intoxicated appearing Respiratory normal respiratory effort; no labored breathing Cardiovascular Extremities: normal capillary refill Results & Data Results & Data Laboratory Results WBC normalized. Cultures without growth to date. Diagnostic Findings . PG Care Time/CCT Total # of Minutes Spent Total Time Spent with Patient: Total time spent is greater than 50% in coordination of care (as documented) at patient's floor/unit and/or counseling patient: Coding Level of Care Code 76188 Post Operative Follow-Up Diagnoses Tenosynovitis of left wrist M65.9 Carpal tunnel syndrome, left G56.02
== END 2022-02-10 17:17 | disposition home or self-care (01) | DRG 500 ==
LOC: ED 11:01 → 3E 11:01 → SUATTDRO 15:26 → 3E 16:20
DX: F17.210 Nicotine dependence, cigarettes, uncomplicated; W55.03XA Scratched by cat, initial encounter; G56.02 Carpal tunnel syndrome, left upper limb; Z88.5 Allergy status to narcotic agent; M79.7 Fibromyalgia; Z88.0 Allergy status to penicillin; K58.9 Irritable bowel syndrome, unspecified; Y92.019 Unspecified place in single-family (private) house as the place of occurrence of the external cause; L03.114 Cellulitis of left upper limb; Z83.3 Family history of diabetes mellitus; M65.142 Other infective (teno)synovitis, left hand; U07.1 COVID-19